=== PATIENT | male | born 1960 | race Caucasian/White ===

== ENCOUNTER → 2019-11-20 10:48 | Outpatient (BNVA) | payer OTHER, SELFPAY | PROVIDERS: Family Provider Emergency Medicine Emergency Medical Services; PCP Emergency Medicine Emergency Medical Services; Visit Provider Specialist | DX: G43.711 Chronic migraine without aura, intractable, with status migrainosus (principal) | CPT/HCPCS: 64615; J0585 ==

== ENCOUNTER → 2020-02-19 09:00 | Outpatient (BNVA) | payer OTHER, SELFPAY | PROVIDERS: Family Provider Emergency Medicine Emergency Medical Services; PCP Emergency Medicine Emergency Medical Services; Visit Provider Specialist | DX: G43.711 Chronic migraine without aura, intractable, with status migrainosus (principal) | CPT/HCPCS: 64615; 96372; J0585; J1885; J2405 ==

== ENCOUNTER → 2020-05-11 10:54 | Outpatient (BNVA) | payer OTHER, SELFPAY | PROVIDERS: Family Provider Emergency Medicine Emergency Medical Services; PCP Emergency Medicine Emergency Medical Services; Visit Provider Specialist | DX: G43.711 Chronic migraine without aura, intractable, with status migrainosus (principal) | CPT/HCPCS: 64615; J0585 ==

== ENCOUNTER → 2020-08-05 11:36 | Outpatient (BNVA) | payer OTHER, SELFPAY | PROVIDERS: Family Provider Emergency Medicine Emergency Medical Services; PCP Emergency Medicine Emergency Medical Services; Visit Provider Dermatology | DX: D48.9 Neoplasm of uncertain behavior, unspecified (principal) | CPT/HCPCS: 88304 ==

== ENCOUNTER → 2020-08-26 15:17 | Outpatient (BNVA) | payer OTHER, SELFPAY | PROVIDERS: Family Provider Emergency Medicine Emergency Medical Services; PCP Emergency Medicine Emergency Medical Services; Visit Provider Specialist | DX: G43.711 Chronic migraine without aura, intractable, with status migrainosus (principal) | CPT/HCPCS: 64615; 96372; J0585; J2405 ==

== ENCOUNTER → 2020-11-18 13:58 | Outpatient (BNVA) | payer OTHER, SELFPAY | PROVIDERS: Family Provider Emergency Medicine Emergency Medical Services; PCP Emergency Medicine Emergency Medical Services; Visit Provider Specialist | DX: G43.711 Chronic migraine without aura, intractable, with status migrainosus (principal) | CPT/HCPCS: 64615 ==

== ENCOUNTER → 2021-02-17 10:05 | Outpatient (BNVA) | payer OTHER, MEDICARE, SELFPAY | PROVIDERS: Family Provider Emergency Medicine Emergency Medical Services; PCP Emergency Medicine Emergency Medical Services; Visit Provider Specialist | DX: G43.711 Chronic migraine without aura, intractable, with status migrainosus (principal) | CPT/HCPCS: 64615; J0585 ==

== ENCOUNTER → 2021-04-14 11:43 | Outpatient (BNVA) | payer OTHER, SELFPAY | PROVIDERS: Family Provider Emergency Medicine Emergency Medical Services; PCP Emergency Medicine Emergency Medical Services; Visit Provider Specialist | DX: M17.0 Bilateral primary osteoarthritis of knee (principal) | CPT/HCPCS: 73560; 73565 ==

== ENCOUNTER → 2021-05-12 10:07 | Outpatient (BNVA) | payer OTHER, SELFPAY | PROVIDERS: Family Provider Emergency Medicine Emergency Medical Services; PCP Emergency Medicine Emergency Medical Services; Visit Provider Specialist | DX: G43.709 Chronic migraine without aura, not intractable, without status migrainosus (principal); S14.3XXA Injury of brachial plexus, initial encounter; Y93.9 Activity, unspecified | CPT/HCPCS: 64615; 99214; J0585 ==

== ENCOUNTER → 2021-05-23 10:45 | Outpatient (BNVA) | payer OTHER, SELFPAY | PROVIDERS: Family Provider Emergency Medicine Emergency Medical Services; PCP Emergency Medicine Emergency Medical Services; Referring Provider Specialist; Visit Provider Specialist | DX: G56.01 Carpal tunnel syndrome, right upper limb (principal); S14.3XXA Injury of brachial plexus, initial encounter; Y93.9 Activity, unspecified | CPT/HCPCS: 95910 ==

== ENCOUNTER → 2021-05-23 12:42 | Outpatient (BNVA) | payer MEDICARE, BC, SELFPAY | PROVIDERS: Family Provider Emergency Medicine Emergency Medical Services; PCP Emergency Medicine Emergency Medical Services; Visit Provider Dermatology | DX: B35.2 Tinea manuum (principal) | CPT/HCPCS: 87220 ==

== ENCOUNTER → 2021-08-04 11:03 | Outpatient (BNVA) | payer OTHER, SELFPAY | PROVIDERS: Family Provider Emergency Medicine Emergency Medical Services; PCP Emergency Medicine Emergency Medical Services; Visit Provider Specialist | DX: G43.711 Chronic migraine without aura, intractable, with status migrainosus (principal); S14.3XXA Injury of brachial plexus, initial encounter; Y93.9 Activity, unspecified; G56.02 Carpal tunnel syndrome, left upper limb; M50.90 Cervical disc disorder, unspecified, unspecified cervical region | CPT/HCPCS: 64615; 99214; J0585 ==

== ENCOUNTER 2021-08-19 12:45 | Outpatient (CLI) | payer OTHER, SELFPAY ==
--- NOTE | 2021-08-19 13:00 | MR_ITS ---
WS: [id number] MRI BRAIN WITHOUT CONTRAST HISTORY: G44.001 - Cluster headache syndrome, unspecified, intractable... Migraines. COMPARISON: None available. TECHNIQUE: Diffusion imaging, multiplanar T1, T2 and FLAIR imaging obtained. No evidence for acute infarct or hemorrhage. Arcos-white matter differentiation is normal. Numerous T2 and FLAIR signal hyperintensities in the subcortical white matter. Bilateral distribution and predominantly in the supratentorial white matter. There are also a few white matter lesions eusebia cent to the corpus callosum over the frontal lobes and occipital lobes. No associated hemorrhage. No prior large territory infarct. Ventricles and extra-axial spaces are normal. No inferior displacement of cerebellar tonsils. The sella turcica and pituitary gland are unremarkabl e. Dural venous sinuses and [place] of Mazariegos demonstrate no abnormality on this unenhanced studies. Paranasal sinuses: Clear. Mastoid air cells: Normal. Calvarium and scalp: Intact. MR/MR head wo con* [id number] IMPRESSION: 1. No acute infarct. 2. Numerous T2 and FLAIR signal hyperintensities abdominal and within a subcor tical supratentorial white matter and bilateral distribution. There are a few w betsy matter lesions adjacent to the corpus callosum over the frontal and occipi katie lobes. Differential for these white matter lesions includes migraines, smal l vessel ischemic disease, demyelinating disease, smoking or diabetes.
--- NOTE | 2021-08-19 13:45 | MR_ITS ---
WS: [id number] MRI CERVICAL SPINE NONCONTRAST HISTORY: M50.90 - Cervical disc disorder, unspecified, migraines. COMPARISON: None available. Technique: Multiplanar, multisequence noncontrast imaging of the cervical spine. Straightening of the normal cervical lordosis. 2 mm retrolisthesis of C3. Advanced degenerative disc disease and osteophytosis throughout the cervical spine. Mild encroachment upon the ventral thecal sa c from the C3 level through C6-7. Signal within the cervical cord is normal. Visualized posterior fossa is unremarkable. Craniocervical junction, C1 and C2 relationship, odontoid process and soft tissues are normal. C2-C3: Normal. C3-C4: Osteophytic ridging and annular disc bulging. Central disc protrusion and osteophyte encroachi ng upon the ventral thecal sac. Very slight contact on the ventral cord. Moderate RIGHT and mild LEFT foraminal stenosis due to osteophytes. C4-C5: Diffuse osteophytic ridging and annular disc bulging. Focal moderate RIGHT proximal foraminal disc osteophyte complex. Posterior displacement of the nerve roots with moderate RIGHT foraminal sten osis. C5-C6: Diffuse osteophytic ridging and annular disc bulging. Disc and osteophyte encroachment and fac et arthritis causing moderate central with moderate to severe bilateral foraminal stenosis. C6-C7: Diffuse osteophytic ridging. Mild central and foraminal narrowing. C7-T1: Small LEFT foraminal disc osteophyte complex. Paraspinal soft tissue are normal. MR/MR cervical spin wo con* [id number] IMPRESSION: 1. Central disc osteophyte complex encroaching upon the ventral thecal sac at C3-4. Moderate RIGHT and mild LEFT foraminal stenosis at the C3-4 level. 2. Moderate RIGHT proximal foraminal disc osteophyte complex at C4-5 with mode rate RIGHT foraminal stenosis. 3. Moderate central with moderate to severe bilateral foraminal stenosis at C5 -6 due to disc and osteophyte disease. 4. Mild central and foraminal narrowing at C6-7.
== END 2021-08-19 12:46 | disposition home or self-care (01) ==
LOC: RADSHAW 12:49
PROVIDERS: Family Provider Emergency Medicine Emergency Medical Services; PCP Emergency Medicine Emergency Medical Services; Visit Provider Specialist
DX: G44.001 Cluster headache syndrome, unspecified, intractable; M50.90 Cervical disc disorder, unspecified, unspecified cervical region
CPT/HCPCS: 70551; 72141

== ENCOUNTER → 2021-10-27 11:28 | Outpatient (BNVA) | payer OTHER, SELFPAY | PROVIDERS: Family Provider Emergency Medicine Emergency Medical Services; PCP Emergency Medicine Emergency Medical Services; Referring Provider Specialist; Visit Provider Specialist | DX: G43.711 Chronic migraine without aura, intractable, with status migrainosus (principal); M50.90 Cervical disc disorder, unspecified, unspecified cervical region; M48.02 Spinal stenosis, cervical region; G37.9 Demyelinating disease of central nervous system, unspecified; Z87.891 Personal history of nicotine dependence | CPT/HCPCS: 64615; 99214 ==

== ENCOUNTER → 2022-01-19 10:10 | Outpatient (BNVA) | payer OTHER, SELFPAY | PROVIDERS: Family Provider Emergency Medicine Emergency Medical Services; PCP Emergency Medicine Emergency Medical Services; Visit Provider Specialist | DX: G43.711 Chronic migraine without aura, intractable, with status migrainosus (principal); M50.90 Cervical disc disorder, unspecified, unspecified cervical region; M48.02 Spinal stenosis, cervical region; G37.9 Demyelinating disease of central nervous system, unspecified; Z87.891 Personal history of nicotine dependence | CPT/HCPCS: 64615; 99212; 99213; J0585 ==

== ENCOUNTER → 2022-02-16 14:22 | Outpatient (BNVA) | payer OTHER, SELFPAY | PROVIDERS: Family Provider Emergency Medicine Emergency Medical Services; PCP Emergency Medicine Emergency Medical Services; Referring Provider Nurse Practitioner Family; Visit Provider Orthopaedic Surgery | DX: M48.02 Spinal stenosis, cervical region (principal) | CPT/HCPCS: 72050; 99204 ==

== ENCOUNTER → 2022-04-13 10:29 | Outpatient (BNVA) | payer OTHER, SELFPAY | PROVIDERS: Family Provider Emergency Medicine Emergency Medical Services; PCP Emergency Medicine Emergency Medical Services; Visit Provider Specialist | DX: G43.711 Chronic migraine without aura, intractable, with status migrainosus (principal) | CPT/HCPCS: 64615; J0585 ==

== ENCOUNTER → 2022-05-01 10:47 | Outpatient (BNVA) | payer OTHER, SELFPAY | PROVIDERS: Family Provider Emergency Medicine Emergency Medical Services; PCP Emergency Medicine Emergency Medical Services; Referring Provider Emergency Medicine Emergency Medical Services; Visit Provider Surgery | DX: Z12.11 Encounter for screening for malignant neoplasm of colon (principal) | CPT/HCPCS: 99203 ==

== ENCOUNTER → 2022-06-28 08:19 | Outpatient (BNVA) | payer OTHER, SELFPAY | PROVIDERS: Family Provider Emergency Medicine Emergency Medical Services; PCP Emergency Medicine Emergency Medical Services; Visit Provider Podiatrist Foot & Ankle Surgery | DX: S93.491A Sprain of other ligament of right ankle, initial encounter (principal); S92.154A Nondisplaced avulsion fracture (chip fracture) of right talus, initial encounter for closed fracture; W23.0XXA Caught, crushed, jammed, or pinched between moving objects, initial encounter | CPT/HCPCS: 73610; 99204 ==

== ENCOUNTER 2022-06-28 13:17 | Outpatient (CLI) | payer OTHER, SELFPAY | END 2022-06-28 13:18 | disposition home or self-care (01) | LOC: SPT 13:17 | PROVIDERS: Family Provider Emergency Medicine Emergency Medical Services; PCP Emergency Medicine Emergency Medical Services; Visit Provider Podiatrist Foot & Ankle Surgery | DX: S92.109D Unspecified fracture of unspecified talus, subsequent encounter for fracture with routine healing (principal); X58.XXXD Exposure to other specified factors, subsequent encounter | CPT/HCPCS: 97760; 99204; L1902 ==

== ENCOUNTER → 2022-07-06 10:14 | Outpatient (BNVA) | payer OTHER, SELFPAY | PROVIDERS: Family Provider Emergency Medicine Emergency Medical Services; PCP Emergency Medicine Emergency Medical Services; Visit Provider Specialist | DX: G43.711 Chronic migraine without aura, intractable, with status migrainosus (principal) | CPT/HCPCS: 64615; J0585 ==

== ENCOUNTER 2022-07-12 08:10 | Day surgery (SDC) | payer OTHER, SELFPAY ==
[2022-07-11 12:04] VITALS: BMI 31.3
[2022-07-12 08:25] VITALS: BP 112/72; PULSE 86; RESP 18; TEMP 36.2; O2SAT 94
[2022-07-12] MEDS: sodium chloride 0.9% 1,000 ML 30 ML IV (08:42)
--- NOTE | 2022-07-12 08:52 | ANES.PREANE2 ---
Pre-Anesthetic Assessment Height/Weight: Height 1.7 m Weight 90.718 kg Temp Pulse Resp BP Pulse Ox O2 Del Method 97.1 F L 86 18 112/72 94 07/12/22 08:25 07/12/22 08:25 07/12/22 08:25 07/12/22 08:25 07/12/22 08:25 07/12/22 08:25 Operation Date: 07/12/22 09:30 Proposed Procedures p Colonoscopy 44110,Z12.11(Not Applicable) - Tee Arreola DO Familial anesthetic complications: None Was Beta Kevin taken within 24 hours: N/A Was Clonidine taken within 24 hours: Yes Last intake: Intake Last Liquid Date 07/11/22 Last Liquid Time 19:00 Last Solid Date 07/10/22 Last Solid Time 19:00 Social No alcohol and No tobacco Exam alert, oriented x 3, clear to auscultation bilaterally and regular rate & rhythm Airway Mallampati: Class II Dentition: full CV/HEM Hypertension Metabolic Hyperlipidemia Neuropsych headaches, pTSD Anesthetic Plan ASA status: 2 Anesthesia: MAC Risk of > 500 ml blood loss (7ml/kg in children): No Other Pertinent Information Recently tree fell on patient - states he has no residual pain Medications/Allergies Home Medications Medication Instructions Recorded Confirmed Last Taken Type amlodipine 10 mg tablet 10 mg PO QDAY 11/20/19 07/12/22 07/12/22 History ascorbic acid (vitamin C) 500 mg 500 mg PO DAILY 11/20/19 07/12/22 07/12/22 History capsule aspirin 81 mg tablet,delayed 81 mg PO QDAY 11/20/19 07/12/22 07/08/22 History release (Adult Aspirin Regimen) atorvastatin 20 mg tablet 20 mg PO QDAY 11/20/19 07/12/22 07/11/22 History bupropion HCl 300 mg 24 hr tablet, 300 mg PO QAM 11/20/19 07/12/22 07/11/22 History extended release clonidine HCl 0.1 mg tablet 0.1 mg PO .PRN 11/20/19 07/12/22 Unknown History doxepin 100 mg capsule 100 mg PO QDAY 11/20/19 07/12/22 07/11/22 History garlic 1,000 mg capsule 1,000 mg PO QDAY 11/20/19 07/12/22 07/12/22 History hydroxyzine pamoate 25 mg capsule 25 mg PO BID PRN unknown 11/20/19 07/12/22 Unknown History lisinopril 40 mg tablet 40 mg PO QDAY 11/20/19 07/12/22 07/11/22 History magnesium oxide 500 mg capsule 500 mg PO QDAY 11/20/19 07/12/22 07/11/22 History multivitamin 1 cap PO QAM 11/20/19 07/12/22 07/12/22 History omega-3 fatty acids 1,000 mg 1,000 mg PO BID 11/20/19 07/12/22 Unknown History capsule (Fish Oil Concentrate) onabotulinumtoxinA 100 unit 155 unit SUBCUT .Q12WKS 11/20/19 07/12/22 06/29/22 History solution for injection (Botox) prazosin 5 mg capsule (Minipress) 7 mg PO QDAY 11/20/19 07/12/22 07/11/22 History vitamin B comp and C no.3 15 mg-10 1 cap PO QDAY 11/20/19 07/12/22 07/11/22 History mg-50 mg-5 mg-300 mg capsule (B Complex Plus Vitamin C) ketoconazole 2 % topical cream 1 applic topical BID #60 grams 05/23/21 07/12/22 Unknown Rx rimegepant 75 mg disintegrating 75 mg PO ONCE PRN migraine 04/27/22 07/12/22 Unknown Rx tablet (Nurtec ODT) headache #9 tabs erenumab-aooe 140 mg/mL See Rx Instructions .Route 05/24/22 07/12/22 06/02/22 Rx subcutaneous auto-injector .COMPLEX #1 mL (Aimovig Autoinjector) trazodone 100 mg tablet 100 mg PO DAILY 06/27/22 07/12/22 07/11/22 History ASO to the right #1 ea 06/28/22 07/06/22 Unknown Rx halcinonide 0.1 % topical cream 1 applic topical BID 07/12/22 07/12/22 07/10/22 History (Halog) Allergies Allergy/AdvReac Type Severity Reaction Status Date / Time No Known Allergies Allergy Verified 07/12/22 08:25 Current Medications Generic Name Dose Route Start Last Admin Trade Name Freq PRN Reason Stop Dose Admin Sodium Chloride 1,000 mls @ 30 mls/hr 07/12/22 08:30 07/12/22 08:42 Sodium Chloride 0.9% IV 07/13/22 08:29 30 mls/hr .Q24H DAMARIS Administration PFSH Anesthesia Medical History Chronic migraine without aura, intractable, with status migrainosus PTSD (post-traumatic stress disorder) Surgical History History of cataract extraction with lens replacement History of colonoscopy Hx of inguinal hernia repair Hx of shoulder replacement S/P left rotator cuff repair Family History Other Diabetes Social History Smoking and tobacco status: never smoked Alcohol intake: never History of recent travel: No Data Anesthesia Cardiac Studies: No Data to Display
--- NOTE | 2022-07-12 09:32 | PM.HP ---
Providers/Chief Complaint Primary Care Provider: Bi Boss DO History of Present Illness Cecilio Vanegas is a 61 year old male here for colonoscopy Medications/Allergies Home Medications Medication Instructions Recorded Confirmed Last Taken Type amlodipine 10 mg tablet 10 mg PO QDAY 11/20/19 07/12/22 07/12/22 History ascorbic acid (vitamin C) 500 mg 500 mg PO DAILY 11/20/19 07/12/22 07/12/22 History capsule aspirin 81 mg tablet,delayed 81 mg PO QDAY 11/20/19 07/12/22 07/08/22 History release (Adult Aspirin Regimen) atorvastatin 20 mg tablet 20 mg PO QDAY 11/20/19 07/12/22 07/11/22 History bupropion HCl 300 mg 24 hr tablet, 300 mg PO QAM 11/20/19 07/12/22 07/11/22 History extended release clonidine HCl 0.1 mg tablet 0.1 mg PO .PRN 11/20/19 07/12/22 Unknown History doxepin 100 mg capsule 100 mg PO QDAY 11/20/19 07/12/22 07/11/22 History garlic 1,000 mg capsule 1,000 mg PO QDAY 11/20/19 07/12/22 07/12/22 History hydroxyzine pamoate 25 mg capsule 25 mg PO BID PRN unknown 11/20/19 07/12/22 Unknown History lisinopril 40 mg tablet 40 mg PO QDAY 11/20/19 07/12/22 07/11/22 History magnesium oxide 500 mg capsule 500 mg PO QDAY 11/20/19 07/12/22 07/11/22 History multivitamin 1 cap PO QAM 11/20/19 07/12/22 07/12/22 History omega-3 fatty acids 1,000 mg 1,000 mg PO BID 11/20/19 07/12/22 Unknown History capsule (Fish Oil Concentrate) onabotulinumtoxinA 100 unit 155 unit SUBCUT .Q12WKS 11/20/19 07/12/22 06/29/22 History solution for injection (Botox) prazosin 5 mg capsule (Minipress) 7 mg PO QDAY 11/20/19 07/12/22 07/11/22 History vitamin B comp and C no.3 15 mg-10 1 cap PO QDAY 0107/12/22 07/11/22 History mg-50 mg-5 mg-300 mg capsule (B Complex Plus Vitamin C) ketoconazole 2 % topical cream 1 applic topical BID #60 grams 05/23/21 07/12/22 Unknown Rx rimegepant 75 mg disintegrating 75 mg PO ONCE PRN migraine 04/27/22 07/12/22 Unknown Rx tablet (Nurtec ODT) headache #9 tabs erenumab-aooe 140 mg/mL See Rx Instructions .Route 05/24/22 07/12/22 06/02/22 Rx subcutaneous auto-injector .COMPLEX #1 mL (Aimovig Autoinjector) trazodone 100 mg tablet 100 mg PO DAILY 06/27/22 07/12/22 07/11/22 History ASO to the right #1 ea 06/28/22 07/06/22 Unknown Rx halcinonide 0.1 % topical cream 1 applic topical BID 07/12/22 07/12/22 07/10/22 History (Halog) Allergies Allergy/AdvReac Type Severity Reaction Status Date / Time No Known Allergies Allergy Verified 07/12/22 08:25 PFSH Acute PFSH: Medical History Chronic migraine without aura, intractable, with status migrainosus PTSD (post-traumatic stress disorder) Surgical History History of cataract extraction with lens replacement History of colonoscopy Hx of inguinal hernia repair Hx of shoulder replacement S/P left rotator cuff repair Family History Other Diabetes Social History Smoking and tobacco status: never smoked Alcohol intake: never History of recent travel: No Vitals/I&O/Wt Last Vital Signs Temp 97.1 F L 07/12/22 08:25 Pulse 86 07/12/22 08:25 Resp 18 07/12/22 08:25 BP 112/72 07/12/22 08:25 Pulse Ox 94 07/12/22 08:25 O2 Del Method 07/12/22 08:25 Weight last 48 hrs Weight 200 lb A&P Assessment and plan (1) Colon cancer screening: Status: Acute Plan Colonoscopy Attestations Medical Necessity Statement*: Home Coding Level of Care Code Acute [employer] for Chg Fwd Diagnoses Colon cancer screening Z12.11
[2022-07-12 10:24] VITALS: BP 123/74; PULSE 65; RESP 18; TEMP 36.1; O2SAT 93
--- NOTE | 2022-07-12 10:25 | ANE.PACU2 ---
Inpatient post-anesthesia follow up: Airway intact: Yes Vital signs: Temperature 97.0 F Pulse Rate 65 Respiratory Rate 18 Blood Pressure 123/74 Pulse Oximetry 93 Oxygen Delivery Me thod Room Air Oxygen Flow Rate Fraction of Inspir ed Oxygen Hydration adequate: Yes Nausea and vomiting: No Pain level: 1 Mental status: Baseline
[2022-07-12 10:30] VITALS: BP 138/82; PULSE 61; RESP 108; O2SAT 95
== END 2022-07-12 10:46 | disposition home or self-care (01) ==
PROVIDERS: PCP Emergency Medicine Emergency Medical Services; Visit Provider Surgery
PROC: 0DJD8ZZ Inspection of Lower Intestinal Tract, Via Natural or Artificial Opening Endoscopic (ICD-10-PCS; CPT 45378; principal; 2022-07-12 09:30)
DX: Z12.11 Encounter for screening for malignant neoplasm of colon (principal); K57.30 Diverticulosis of large intestine without perforation or abscess without bleeding; D12.2 Benign neoplasm of ascending colon; I10 Essential (primary) hypertension; E78.5 Hyperlipidemia, unspecified; Z79.82 Long term (current) use of aspirin
CPT/HCPCS: 45385; 88305; J2704; J7030

== ENCOUNTER → 2022-07-25 08:15 | Outpatient (BNVA) | payer OTHER, SELFPAY | PROVIDERS: PCP Emergency Medicine Emergency Medical Services; Visit Provider Surgery | DX: Z09 Encounter for follow-up examination after completed treatment for conditions other than malignant neoplasm (principal); D12.6 Benign neoplasm of colon, unspecified | CPT/HCPCS: 99212 ==

== ENCOUNTER → 2022-07-26 11:09 | Outpatient (BNVA) | payer OTHER, SELFPAY | PROVIDERS: PCP Emergency Medicine Emergency Medical Services; Visit Provider Podiatrist Foot & Ankle Surgery | DX: S93.491D Sprain of other ligament of right ankle, subsequent encounter (principal); S92.154D Nondisplaced avulsion fracture (chip fracture) of right talus, subsequent encounter for fracture with routine healing; W23.0XXD Caught, crushed, jammed, or pinched between moving objects, subsequent encounter | CPT/HCPCS: 99213 ==

== ENCOUNTER → 2022-08-03 10:25 | Outpatient (BNVA) | payer OTHER, SELFPAY | PROVIDERS: PCP Emergency Medicine Emergency Medical Services; Visit Provider Specialist | DX: Z71.89 Other specified counseling (principal); M17.0 Bilateral primary osteoarthritis of knee | CPT/HCPCS: 20610; J7326 ==

== ENCOUNTER → 2022-09-28 09:02 | Outpatient (BNVA) | payer OTHER, SELFPAY | PROVIDERS: PCP Emergency Medicine Emergency Medical Services; Visit Provider Specialist | DX: G43.711 Chronic migraine without aura, intractable, with status migrainosus (principal) | CPT/HCPCS: 64615; 95911; J0585 ==

== ENCOUNTER → 2022-12-21 09:18 | Outpatient (BNVA) | payer OTHER, SELFPAY | PROVIDERS: PCP Emergency Medicine Emergency Medical Services; Visit Provider Specialist | DX: G43.711 Chronic migraine without aura, intractable, with status migrainosus (principal); R11.0 Nausea | CPT/HCPCS: 64615; 96372; J0585; J2405 ==

== ENCOUNTER → 2023-02-08 09:15 | Outpatient (BNVA) | payer OTHER, SELFPAY | PROVIDERS: PCP Emergency Medicine Emergency Medical Services; Visit Provider Specialist | DX: M17.0 Bilateral primary osteoarthritis of knee (principal) | CPT/HCPCS: 20610; J7326 ==

== ENCOUNTER 2023-03-12 10:36 | Outpatient (RCR) | payer OTHER, SELFPAY | END 2023-03-21 23:59 | disposition home or self-care (01) | LOC: SPT 10:36 | PROVIDERS: PCP Emergency Medicine Emergency Medical Services; Visit Provider Emergency Medicine Emergency Medical Services | DX: H81.399 Other peripheral vertigo, unspecified ear (principal) | CPT/HCPCS: 95992; 97161 ==

== ENCOUNTER → 2023-03-15 08:30 | Outpatient (BNVA) | payer OTHER, SELFPAY | PROVIDERS: PCP Emergency Medicine Emergency Medical Services; Visit Provider Specialist | DX: G43.711 Chronic migraine without aura, intractable, with status migrainosus (principal); I95.2 Hypotension due to drugs; T44.6X5A Adverse effect of alpha-adrenoreceptor antagonists, initial encounter | CPT/HCPCS: 64615; 99214; J0585 ==

== ENCOUNTER 2023-03-26 11:13 | Emergency (ER) | payer OTHER, SELFPAY ==
[2023-03-26 11:42] VITALS: BP 132/79; PULSE 76; RESP 16; TEMP 36.6; O2SAT 94
--- NOTE | 2023-03-26 12:06 | ECG_ITS ---
[facility] Test Date: 2023-03-26 Pat Name: Cecilio Vanegas Department: Room: Gender: Male Director Of Diagnostic Imaging: : 1960 Requested By: Young Concepcion Order Number: [id number] Wilver MD: Boyd Alcazar M.D. Measurements Intervals [place] Rate: 64 P: 50 UT: 298 QRS: 2 QRSD: 142 T: 45 QT: 420 QTc: 435 Interpretive Statements SINUS RHYTHM WITH FIRST DEGREE AV BLOCK RIGHT BUNDLE BRANCH BLOCK [120+ ms QRS DURATION, UPRIGHT V1, 40+ ms S IN I/aVL/V4/V5/V6] No previous ECG available for comparison Electronically Signed On 03-26-2023 16:43:34 CDT by Boyd Alcazar M.D. [id number]
--- NOTE | 2023-03-26 12:15 | W.ED.WEAKNES ---
HPI - Weakness General: Chief complaint: Weakness Stated complaint: low hr Time Seen by Provider: 03/26/23 12:01 Source: patient Mode of arrival: ambulatory History of Present Illness: 62 yo male present to the ER with complaints of weakness fo rthe last 2 months. No specific precipitating or exacerbating symptoms nothing that seems to relieve his been seen previously at the [facility]. He is also stating he has had a few episodes of bradycardia. He is in normal range on arrival here. Denies any chest pain or abdominal pain no shortness of breath. MD Complaint: generalized weakness Onset (ago): month(s) (2) Duration: constant Migration: none Severity: mild Relieving factors: none Exacerbating factors: none Associated symptoms: Denies chest pain, chills, confusion, melena, decreased appetite, diaphoresis, dysuria, easy bruising, fever(s), headache(s), myalgias, nausea, rash, short of breath, syncope or vomiting Review of Systems Const: Denies: fever(s), chills or diaphoresis Card: Denies: chest pain or syncope GI: Denies: nausea, vomiting or melena : Denies: dysuria Neuro: Denies: headache(s) or confusion [place]/Lymph: Denies: easy bruising PFSH ED PFSH: Medical History Chronic migraine without aura, intractable, with status migrainosus PTSD (post-traumatic stress disorder) Tubular adenoma of colon Surgical History History of cataract extraction with lens replacement History of colonoscopy Hx of inguinal hernia repair Hx of shoulder replacement S/P left rotator cuff repair Family History Other Diabetes Social History Smoking and tobacco status: never smoked Alcohol intake: never Substance/Drug Use: never Physical Exam Const: GENERAL APPEARANCE: cooperative and comfortable ORIENTATION/CONSCIOUSNESS: Yes awake, Yes oriented to person, Yes oriented to place and Yes oriented to time HENMT: COMMON NORMALS: normocephalic, atraumatic and hearing grossly normal bilaterally HEAD & SCALP: normocephalic and atraumatic Resp: COMMON NORMALS: normal respiratory effort, No retractions, No use of accessory muscles and clear to auscultation bilaterally AUSCULTATION: clear to auscultation bilaterally Cardio: COMMON NORMALS: regular rate, regular rhythm and No murmurs present (Cardio) RATE: regular rate RHYTHM: regular rhythm GI: COMMON NORMALS: Soft to palpation and No hepatosplenomegaly present AUSCULTATION: Yes normoactive bowel sounds PALPATION: Yes Soft to palpation, No Tenderness to palpation present (GI), No Guarding due to palpation present (GI) and Yes No hepatosplenomegaly present Extremity: COMMON NORMALS: normal to inspection, capillary refill normal, no clubbing, cyanosis or edema, no calf tenderness and no pedal edema Neuro: SENSORIUM/ORIENTATION: Yes oriented to person, Yes oriented to place and Yes oriented to time Skin: COMMON NORMALS: no rashes or lesions noted GENERAL SKIN EXAM: no rashes or lesions noted Course Vital Signs: Vital signs: Vital Signs Temperature 97.8 F 03/26/23 11:42 Pulse Rate 66 03/26/23 13:30 Respiratory Rate 16 03/26/23 11:42 Blood Pressure 149/86 03/26/23 13:30 Pulse Oximetry 91 03/26/23 13:30 Oxygen Delivery Me thod Room Air 03/26/23 13:30 MDM - Weakness Medical Decision Making Labs and imaging reviewed cardiac enzymes and EKG do not show any acute changes. Will discharge home have patient follow-up with his primary care doctor. We will also set him up for a 48-hour Holter monitor. Return if has further problems. Medical Records I reviewed the patient's medical records. Lab Data I reviewed the patient's lab results. 03/26/23 12:35 03/26/23 12:35 Radiology Impressions Chest X-Ray 03/26/23 13:43 IMPRESSION: No acute findings. Laboratory Results WBC 4.9 10^3/uL (4.0-10.0) 03/26/23 12:35 RBC 4.61 10^6/uL (4.1-5.3) 03/26/23 12:35 Hgb 13.9 g/dL (11.7-16.6) 03/26/23 12:35 Hct 41.2 % (42.0-52.0) L 03/26/23 12:35 MCV 89.4 fl (80-94) 03/26/23 12:35 MCH 30.2 pg (28.0-34.0) 03/26/23 12:35 MCHC 33.7 g/dL (30.0-36.0) 03/26/23 12:35 RDW 11.9 % (12.1-15.1) L 03/26/23 12:35 Plt Count 170 10^3/cmm (130-400) 03/26/23 12:35 MPV 8.7 fL (7.4-10.4) 03/26/23 12:35 Neut % (Auto) 46.1 % 03/26/23 12:35 Lymph % (Auto) 43.0 % 03/26/23 12:35 Yancey % (Auto) 7.5 % 03/26/23 12:35 Eos % (Auto) 1.8 % 03/26/23 12:35 Baso % (Auto) 1.0 % 03/26/23 12:35 Neut # (Auto) 2.27 10^3/uL (1.8-7.7) 03/26/23 12:35 Lymph # (Auto) 2.1 10^3/uL (0.8-4.8) 03/26/23 12:35 [place]y # (Auto) 0.4 10^3/uL (0.2-0.9) 03/26/23 12:35 Eos # (Auto) 0.1 10^3/uL (0.0-0.8) 03/26/23 12:35 Baso # (Auto) 0.1 10^3/uL (0.0-0.1) 03/26/23 12:35 Nucleated RBC % (auto) 0 % 03/26/23 12:35 Nucleated RBCs # 0.0 /100WBC 03/26/23 12:35 Sodium 140 mmol/L (136-145) 03/26/23 12:35 Potassium 4.4 mmol/L (3.5-5.1) 03/26/23 12:35 Chloride 102 mmol/L (98-107) 03/26/23 12:35 Carbon Dioxide 28 mmol/L (22-29) 03/26/23 12:35 Anion Gap 14.4 (5-19) 03/26/23 12:35 BUN 16 mg/dL (8-23) 03/26/23 12:35 Creatinine 1.0 mg/dL (0.7-1.2) 03/26/23 12:35 GFR Calculation 76.0 mL/min (90-130) L 03/26/23 12:35 Glucose 93 mg/dL (65-115) 03/26/23 12:35 Calculated Osmolality 291 mOsm/kg (285-295) 03/26/23 12:35 Calcium 9.7 mg/dL (8.5-10.5) 03/26/23 12:35 Total Bilirubin 0.3 mg/dL (0.15-1.2) 03/26/23 12:35 AST 38 U/L (0-40) 03/26/23 12:35 ALT 60 U/L (0-41) H 03/26/23 12:35 Alkaline Phosphatase 91 U/L (40-130) 03/26/23 12:35 Troponin T Baseline 10 ng/L (0-15) 03/26/23 12:35 Troponin T 120 Minute 8.11 ng/L (0-15) 03/26/23 14:29 Delta Troponin T -1.89 ABS# (0-10) L 03/26/23 14:29 Total Protein 6.8 g/dL (6.6-8.7) 03/26/23 12:35 Albumin 4.5 g/dL (3.5-5.2) 03/26/23 12:35 Globulin 2.3 g/dL (1.3-4.6) 03/26/23 12:35 Urine Color Yellow (Yellow) 03/26/23 14:00 Urine Appearance Clear (CLEAR) 03/26/23 14:00 Urine pH 5 (5-7) 03/26/23 14:00 Ur Specific [place] 1.025 (1.005-1.030) 03/26/23 14:00 Urine Protein Neg (Negative) 03/26/23 14:00 Urine Glucose (UA) Norm (Normal) 03/26/23 14:00 Urine Ketones Negative (Negative) 03/26/23 14:00 Urine Blood Neg (Negative) 03/26/23 14:00 Urine Nitrate Negative (Negative) 03/26/23 14:00 Urine Bilirubin Neg (Negative) 03/26/23 14:00 Urine Urobilinogen Norm mg/dL (Negative) 03/26/23 14:00 Ur Leukocyte Esterase Negative (Negative) 03/26/23 14:00 Discharge Plan Discharge Patient Disposition: Home Clinical Impression: Weakness Condition: Stable Prescriptions: No Action doxepin 100 mg capsule 100 mg PO QPM amlodipine 10 mg tablet 10 mg PO QDAY ascorbic acid (vitamin C) 500 mg capsule 500 mg PO DAILY garlic 1,000 mg capsule 1,000 mg PO QDAY magnesium oxide 500 mg capsule 500 mg PO QDAY B Complex Plus Vitamin C 14-33-13-5-300 mg capsule 1 cap PO QDAY clonidine HCl 0.1 mg tablet 0.1 mg PO .PRN Botox 100 unit recon soln 155 unit SUBCUT .Q12WKS aspirin [Adult Aspirin Regimen] 81 mg tablet,delayed release (DR/EC) 81 mg PO QDAY lisinopril 40 mg tablet 40 mg PO QPM atorvastatin 20 mg tablet 20 mg PO QDAY bupropion HCl 300 mg tablet extended release 24 hr 300 mg PO QAM hydroxyzine pamoate 25 mg capsule 25 mg PO BID PRN (Reason: unknown) trazodone 100 mg tablet 100 mg PO DAILY prazosin 5 mg capsule 5 mg PO DAILY imiquimod 5 % cream in packet 1 applic topical ONCE Qty: 24 1RF Rx Instructions: Apply thin film Sunday-Sunday (off weekends) for 2 weeks Nurtec ODT 75 mg tablet,disintegrating 75 mg PO ONCE PRN (Reason: migraine headache) Qty: 9 2RF Rx Instructions: Take 1 at onset of migraine. Aimovig Autoinjector 140 mg/mL auto-injector See Rx Instructions .ROUTE .COMPLEX Qty: 1 2RF Dose Instruction: INJECT 140MG (CONTENTS OF 1 AUTOINJECTOR) UNDER THE SKIN EVERY MONTH TO PREVENT HEADACHES Rx Instructions: INJECT 140MG (CONTENTS OF 1 AUTOINJECTOR) UNDER THE SKIN EVERY MONTH TO PREVENT HEADACHES halcinonide [Halog] 0.1 % cream 1 applic topical BID Rx Instructions: for 2 wks/mo alternating with clobetasol prn Daily Multi-Vitamin Tablet 1 tab PO DAILY cetirizine 10 mg Tablet 10 mg PO DAILY venlafaxine 150 mg Capsule,Extended Release 24hr 150 mg PO DAILY levetiracetam 1,000 mg Tablet 1,000 mg PO BID Calcium 600 + D(3) 600 mg-10 mcg (400 unit) Tablet 1 tab PO DAILY Fish Oil 150-217-840 mg Capsule,Delayed Release(Dr/Ec) 1 cap PO DAILY melatonin 10 mg Tablet 10 mg PO QPM PRN (Reason: Sleep) PreserVision AREDS-2 250-90-40-1 mg Capsule 1 tab PO BID Discharge Orders: Discharge ED (Routine); Ordered 03/26/23 Ordered By: Young Banegas Referrals: Bi Boss, DO [Primary Care Provider] - Discharge Diet: Usual diet Discharge Activity: Increase activity as tolerated Patient Instructions: Opioid Safety, Pain Management Activity Restrictions/Additional Instructions: You are seen today for complaint of weakness and low heart rate your heart rate was normal while you are in the emergency room. Your blood pressure does drop slightly when you stand however this is likely due to side effect of several of your medications. Several medications also may be contributing to you feeling tired and weak at times including the clonidine doxepin hydroxyzine prazosin trazodone. Continue current medications Case management will make arrangements for follow-up with a 48-hour Holter monitor to monitor your heart rate for a period of time. Follow-up with your primary care doctor. Return if you have further problems. 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
[2023-03-26 12:44] VITALS: BP 168/93; PULSE 64; O2SAT 95
[2023-03-26 12:49] VITALS: BP 125/72; BP 127/77; BP 142/85; PULSE 62; PULSE 63; PULSE 77
[2023-03-26 12:49] LABS: Basophils # 0.1 10^3/uL (0.0-0.1); Eosinophils # 0.1 10^3/uL (0.0-0.8); Eosinophils % 1.8 %; Hematocrit 41.2 % (42.0-52.0); Hemoglobin 13.9 g/dL (11.7-16.6); Lymphocytes # 2.1 10^3/uL (0.8-4.8); Mean Corpuscular HGB Conc 33.7 g/dL (30.0-36.0); Mean Corpuscular Hemoglobin 30.2 pg (28.0-34.0); Mean Corpuscular Volume 89.4 fl (80-94); Mean Platelet Volume 8.7 fL (7.4-10.4); Monocytes # 0.4 10^3/uL (0.2-0.9); Monocytes % 7.5 %; Neutrophils # 2.27 10^3/uL (1.8-7.7); Neutrophils % 46.1 %; Nucleated Red Blood Cells % 0 %; Platelet Count 170 10^3/cmm (130-400); Red Blood Count 4.61 10^6/uL (4.1-5.3); Red Cell Distribution Width 11.9 % (12.1-15.1); White Blood Count 4.9 10^3/uL (4.0-10.0)
[2023-03-26 13:04] LABS: Troponin(5th) Baseline 10 ng/L (0-15)
[2023-03-26 13:07] LABS: Alanine Aminotransferase 60 U/L (0-41); Albumin Level 4.5 g/dL (3.5-5.2); Alkaline Phosphatase 91 U/L (40-130); Anion Gap 14.4 (5-19); Aspartate Amino Transferase 38 U/L (0-40); Blood Urea Nitrogen 16 mg/dL (8-23); Calcium 9.7 mg/dL (8.5-10.5); Carbon Dioxide 28 mmol/L (22-29); Chloride 102 mmol/L (98-107); Globulin 2.3 g/dL (1.3-4.6); Glucose 93 mg/dL (65-115); Osmolality Calculated 291 mOsm/kg (285-295); Potassium 4.4 mmol/L (3.5-5.1); Sodium 140 mmol/L (136-145); Total Bilirubin 0.3 mg/dL (0.15-1.2); Total Protein 6.8 g/dL (6.6-8.7)
[2023-03-26 13:30] VITALS: BP 149/86; PULSE 66; O2SAT 91
--- NOTE | 2023-03-26 13:43 | XRR_ITS ---
PROCEDURE INFORMATION: Exam: XR Chest Exam date and time: 03/26/2023 1:49 PM Age: 62 years old Clinical indication: Other: Chest discomfort TECHNIQUE: Imaging protocol: Radiologic exam of the chest. Views: 1 view. COMPARISON: CR XR cervical spine 4-5V [id number] 02/16/2022 3:02 PM FINDINGS: Lungs: Lungs are clear. Pleural spaces: There is no pleural effusion or pneumothorax. Heart/Mediastinum: Cardiomediastinal contours are unremarkable. Bones/joints: Left shoulder arthroplasty is partially imaged. Bones are unremarkable otherwise. XR/XR chest 1V portable [id number] IMPRESSION: No acute findings.
[2023-03-26 14:07] LABS: Add Urine Microscopic? NO; Charge for UA Resulting for Rev
[2023-03-26 14:13] LABS: Urine Appearance Clear (CLEAR); Urine Color Yellow (Yellow)
[2023-03-26 14:14] LABS: Bilirubin Urine Neg (Negative); Blood Urine Neg (Negative); Glucose Urine UA Norm (Normal); Ketones Urine Negative (Negative); Leukocyte Esterase Urine Negative (Negative); Nitrate Urine Negative (Negative); Protein Urine Neg (Negative); Specific Gravity, Urine 1.025 (1.005-1.030); Urobilinogen Urine Norm (Negative); pH Urine 5 (5-7)
--- NOTE | 2023-03-26 14:46 | ECG_ITS ---
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 Measurements Intervals [place] Rate: 60 P: 44 IN: 298 QRS: 0 QRSD: 143 T: 33 QT: 436 QTc: 437 Interpretive Statements SINUS RHYTHM WITH FIRST DEGREE AV BLOCK RIGHT BUNDLE BRANCH BLOCK [120+ ms QRS DURATION, UPRIGHT V1, 40+ ms S IN I/aVL/V4/V5/V6] Compared to ECG 03/26/2023 12:06:37 No significant changes Electronically Signed On 03-26-2023 16:45:14 CDT by Boyd Alcazar M.D. [id number]
[2023-03-26 15:01] LABS: Troponin 5 2HR 8.11 ng/L (0-15)
[2023-03-26 15:07] LABS: Troponin 5 2HR Delta -1.89 ABS# (0-10)
== END 2023-03-26 15:45 | disposition home or self-care (01) ==
PROVIDERS: Emergency Provider Family Medicine; PCP Emergency Medicine Emergency Medical Services
DX: R53.1 Weakness (principal)
CPT/HCPCS: 36415; 71045; 80053; 81003; 84484; 85025; 93005; 99285

== ENCOUNTER → 2023-03-28 15:05 | Outpatient (BNVA) | payer OTHER, MEDICARE, SELFPAY | PROVIDERS: PCP Emergency Medicine Emergency Medical Services; Visit Provider Nurse Practitioner Family | DX: L57.0 Actinic keratosis (principal); L30.8 Other specified dermatitis; L57.8 Other skin changes due to chronic exposure to nonionizing radiation; L81.4 Other melanin hyperpigmentation; D22.5 Melanocytic nevi of trunk; Z71.89 Other specified counseling; L85.3 Xerosis cutis; Z09 Encounter for follow-up examination after completed treatment for conditions other than malignant neoplasm | CPT/HCPCS: 17000; 99214 ==

== ENCOUNTER 2023-04-17 09:36 | Outpatient (CLI) | payer OTHER, SELFPAY ==
[2023-04-17 09:40] VITALS: BMI 31.3
--- NOTE | 2023-04-17 09:41 | ECG_ITS ---
[facility] Test Date: 2023-04-17 Pat Name: Cecilio Vanegas Department: Room: Gender: Male Dope Worker: Melina Mcclure : 1960 Requested By: Bi Gonzalez Order Number: [id number] Wilver MD: Boyd Alcazar M.D. Interpretive Statements NAME OF STUDY: LEXISCAN SESTAMIBI STRESS TEST INDICATION: [abnormal ekg, RBBB, ] Procedure: At the baseline, the blood pressure was 184/93 mmHg with a heart rate of 61 bpm. The electrocardiogram showed normal sinus rhythm, right bundle branch block. The Lexiscan was infused over a period of 20 seconds. A total of 0.4 mg of Lexiscan was infused. The stress phase was continued for a total of 5 minutes. Heart rate was at the end of stress phase was 77 bpm and a blood pressure of 163/82 mmHg. The EKG at the peak infusion revealed normal sinus rhythm with no significant ST-T wave changes. Sestamibi was injected 20 seconds after the Lexiscan infusion. Blood pressure at the end of recovery phase was 153/83 mmHg with a heart rate of 72 bpm. Conclusion: 1. Normal EKG response to Lexiscan infusion 2. No Lexiscan induced chest pain or cardiac arrhythmia. 3. Normal blood pressure and heart rate response. 4. Sestamibi/sestamibi perfusion scan pending; see separate report. Electronically Signed On 04-21-2023 14:38:27 CDT by Boyd Alcazar M.D. [id number]
--- NOTE | 2023-04-17 09:41 | NMCV_ITS ---
NM jj perf SPECT r/s* [id number] Cecilio Vanegas Age: 62 Gender: M : 1960 Exam Date: 04/17/2023 11:06 Ordering Phys: Bi Boss DO Technologist: AMBER Whalen Exam Location: [facility] Indications: ABNORMAL EKG STRESS TEST Please see separate stress test report in [facility] for full findings IMAGE PROTOCOL Rest/Stress 1 Lexiscan Day Radiopharmaceutical Dose (mCi) Administration Site Administered by Rest: Tc-99m 11.0 IV AMBER Mane Sestamibi Stress:Tc-99m 32.9 IV AMBER Mane Sestamibi Rest: 17-Apr-2023 60 Discovery 630 Stress: 17-Apr-2023 30 Discovery 630 0.4mg Lexiscan. Images obtained in supine and prone position. SPECT RESULTS Technical Quality: Excellent Raw Data Analysis: Normal Image Corrections: No attenuation or motion correction applied Summed Stress Score: 0 Summed Rest Score: 1 Summed Difference Score: 0 PERFUSION FINDINGS SPECT images demonstrate homogeneous tracer distribution throughout the myocardium. FUNCTIONAL RESULTS (calculated via Gated SPECT) Stress Image LV EF (%): 56 Stress EDV (mL):119 TID: 1.03 Stress ESV (mL):52 FUNCTIONAL FINDINGS: There is normal left ventricular systolic function. IMPRESSIONS 1. Normal myocardial perfusion imaging with no evidence of ischemia 2. LV systolic function is normal Boyd Alcazar MD (Electronically Signed) Final Date: 17 April 2023 17:25 S
[2023-04-17] MEDS: regadenoson 0.4 Mg/5 ml Syringe IVP (11:42)
[2023-04-17 11:56] VITALS: BP 153/84; PULSE 67
== END 2023-04-17 09:37 | disposition home or self-care (01) ==
LOC: CDL 09:37
PROVIDERS: PCP Emergency Medicine Emergency Medical Services; Visit Provider Emergency Medicine Emergency Medical Services
DX: R94.31 Abnormal electrocardiogram [ECG] [EKG] (principal); I45.10 Unspecified right bundle-branch block
CPT/HCPCS: 36415; 78452; 93017; 96374; A9500; J2785

== ENCOUNTER → 2023-04-23 14:19 | Outpatient (BNVA) | payer OTHER, SELFPAY | PROVIDERS: PCP Emergency Medicine Emergency Medical Services; Visit Provider Internal Medicine | DX: R07.9 Chest pain, unspecified (principal); I44.0 Atrioventricular block, first degree; I45.10 Unspecified right bundle-branch block; R42 Dizziness and giddiness; R06.09 Other forms of dyspnea | CPT/HCPCS: 93005; 99204 ==

== ENCOUNTER 2023-05-09 12:27 | Outpatient (CLI) | payer OTHER, SELFPAY ==
--- NOTE | 2023-05-09 12:45 | USCV_ITS ---
Cecilio Vanegas Age: 62 Gender: M : 1960 Exam Date: 05/09/2023 13:10 Ordering Phys: Boyd Alcazar M.D ([email or web address]) Technologist: Exam [place]: [facility] [place] Indication: murmur BP: 170 / 80 HR: 67 Rhythm: Sinus Technical Quality: Adequate MEASUREMENTS (Male / Female) Normal Values 2D ECHO LV Diastolic Diameter PLAX 3.8 cm 4.2 - 5.9 / 3.9 - 5.3 cm LV Systolic Diameter PLAX 2.5 cm IVS Diastolic Thickness 1.1 cm 0.6 - 1.0 / 0.6 - 0.9 cm IVS Systolic Thickness 1.4 cm LVPW Diastolic Thickness 1.0 cm 0.6 - 1.0 / 0.6 - 0.9 cm LVPW Systolic Thickness 1.5 cm LVOT Diameter 2.1 cm LV Ejection Fraction 2D Teich 61.5 % LV Ejection Fraction MOD 2C 68.3 % LV Ejection Fraction 2C AL 67.6 % LA Diameter 3.9 cm Aorta at Sinotubular Diameter 4.0 cm IVC Diameter 1.8 cm M-MODE Aortic Annulus Diameter 4.2 cm LA Ao Ratio MM 1.0 MV E Point Septal Separation 1.2 cm DOPPLER AV Peak Velocity 113.0 cm/s LVOT Peak Velocity 84.0 cm/s AV Area Cont Eq vti 2.7 cm squared AV Area Cont Eq pk 2.6 cm squared MV Area PHT 4.1 cm squared Mitral E to A Ratio 1.0 MV E' Velocity 38.0 cm/s Mitral E to MV E' Ratio 7.6 Mitral E to LV E' Lateral Ratio 6.9 Mitral E to LV E' Septal Ratio 8.5 TR Peak Velocity 161.0 cm/s TR Peak Gradient 10.4 mmHg TV Peak E Velocity 111.0 cm/s Right Atrial Pressure 3.0 mmHg Pulmonary Artery Systolic Pressu 13.4 mmHg RV Acceleration Time 0.2 s FINDINGS Left Ventricle Left ventricle is normal size. LV systolic function is normal with EF of 60 to 65%. No regional wall motion abnormalities are seen. Right Ventricle Normal in size and function Right Atrium Normal size Left Atrium Normal in size Mitral Valve Structurally normal mitral valve. Mild mitral regurgitation. Aortic Valve Aortic valve is thickened. Mild aortic regurgitation. Tricuspid Valve Mild tricuspid regurgitation. Insufficient TR jet to calculate RVSP. Pulmonic Valve Not well-visualized Pericardium Normal Aorta Ascending aorta is dilated with diameter of 4 cm IVC Appears to be normal CONCLUSIONS LV systolic function is normal with EF of 60 to 65%. Mild mitral regurgitation Mild aortic regurgitation Mild tricuspid regurgitation Ascending aorta is dilated with diameter of 4 cm. No comparison studies are available Boyd Alcazar MD (Electronically Signed) Final Date: 26 May 2023 11:26 S
== END 2023-05-09 12:28 | disposition home or self-care (01) ==
PROVIDERS: PCP Emergency Medicine Emergency Medical Services; Visit Provider Internal Medicine
DX: R00.2 Palpitations (principal); R07.9 Chest pain, unspecified
CPT/HCPCS: 93306

== ENCOUNTER 2023-05-22 11:09 | Outpatient (CLI) | payer OTHER, SELFPAY ==
--- NOTE | 2023-05-22 11:15 | US_ITS ---
WS: [id number] RENAL ULTRASOUND HISTORY: FOLLOW UP ON CYST-L KIDNEY ON CT COMPARISON: None available. TECHNIQUE: 2-D and color Doppler imaging of the kidney submitted. Right kidney: 10.9 cm x 5.3 cm x 4.6 cm. Cortex: 1.7 cm Normal size kidney. There is a cortical cyst mid kidney measuring 1.3 x 1.0 x 1.0 cm. No solid mass. Left kidney: 10.5 cm x 5.1 cm x 6.0 cm. Cortex: 1.1 cm Normal size kidney. Simple cyst mid kidney measures 3.2 x 3.0 x 2.9 cm. No solid mass. Aorta: Normal. Urinary Bladder: Normal distention. Prostate gland is slightly enlarged and heterogeneous. Prostate measures 3.4 x 4.4 x 4.1 cm. Mild enc roachment into the base of the urinary bladder. US/US renal BI* 32010 IMPRESSION: 1. Bilateral renal cysts as described above. The largest mid LEFT kidney measu res 3.2 x 3.0 x 2.9 cm. No prior studies for comparison to evaluate for interva l change. 2. Mild prostate enlargement.
== END 2023-05-22 11:10 | disposition home or self-care (01) ==
PROVIDERS: PCP Emergency Medicine Emergency Medical Services; Visit Provider Emergency Medicine Emergency Medical Services
DX: N28.1 Cyst of kidney, acquired (principal); N40.0 Benign prostatic hyperplasia without lower urinary tract symptoms
CPT/HCPCS: 76770

== ENCOUNTER → 2023-06-14 08:13 | Outpatient (BNVA) | payer OTHER, SELFPAY | PROVIDERS: PCP Emergency Medicine Emergency Medical Services; Visit Provider Specialist | DX: G43.711 Chronic migraine without aura, intractable, with status migrainosus (principal); G37.9 Demyelinating disease of central nervous system, unspecified | CPT/HCPCS: 64615; 99213; J0585 ==

== ENCOUNTER → 2023-07-11 14:17 | Outpatient (BNVA) | payer OTHER, SELFPAY | PROVIDERS: PCP Emergency Medicine Emergency Medical Services; Visit Provider Internal Medicine | DX: R42 Dizziness and giddiness (principal); R06.09 Other forms of dyspnea | CPT/HCPCS: 99214 ==

== ENCOUNTER → 2023-08-16 09:50 | Outpatient (BNVA) | payer OTHER, SELFPAY | PROVIDERS: PCP Emergency Medicine Emergency Medical Services; Visit Provider Specialist | DX: M17.0 Bilateral primary osteoarthritis of knee (principal); Z71.89 Other specified counseling | CPT/HCPCS: 20610; J7326 ==

== ENCOUNTER → 2023-09-20 08:59 | Outpatient (BNVA) | payer OTHER, SELFPAY | PROVIDERS: PCP Emergency Medicine Emergency Medical Services; Visit Provider Specialist | DX: G43.711 Chronic migraine without aura, intractable, with status migrainosus (principal) | CPT/HCPCS: 64615; 95911; J0585 ==

== ENCOUNTER → 2023-10-05 10:38 | Outpatient (BNVA) | payer OTHER, SELFPAY | PROVIDERS: PCP Emergency Medicine Emergency Medical Services; Visit Provider Nurse Practitioner Family | DX: L30.8 Other specified dermatitis (principal); L57.8 Other skin changes due to chronic exposure to nonionizing radiation; D22.5 Melanocytic nevi of trunk; L81.4 Other melanin hyperpigmentation; L85.3 Xerosis cutis | CPT/HCPCS: 99214 ==

== ENCOUNTER → 2023-11-19 10:16 | Outpatient (BNVA) | payer OTHER, SELFPAY | PROVIDERS: PCP Emergency Medicine Emergency Medical Services; Visit Provider Specialist | DX: Z01.818 Encounter for other preprocedural examination; M17.12 Unilateral primary osteoarthritis, left knee | CPT/HCPCS: 73560; 73565; 99214 ==

== ENCOUNTER → 2023-11-22 10:25 | Outpatient (BNVA) | payer OTHER, SELFPAY | PROVIDERS: PCP Emergency Medicine Emergency Medical Services; Visit Provider Nurse Practitioner | DX: M17.11 Unilateral primary osteoarthritis, right knee (principal); Z71.89 Other specified counseling | CPT/HCPCS: 20610; J1100; J2795; J3301 ==

== ENCOUNTER → 2023-12-20 08:40 | Outpatient (BNVA) | payer OTHER, SELFPAY | PROVIDERS: PCP Emergency Medicine Emergency Medical Services; Visit Provider Specialist | DX: G43.711 Chronic migraine without aura, intractable, with status migrainosus (principal) | CPT/HCPCS: 64615; J0585 ==

== ENCOUNTER → 2023-12-24 15:29 | Outpatient (BNVA) | payer SELFPAY | PROVIDERS: PCP Emergency Medicine Emergency Medical Services; Visit Provider Family Medicine | DX: Z01.818 Encounter for other preprocedural examination (principal) | CPT/HCPCS: 80053; 81003; 85025 ==

== ENCOUNTER 2023-12-25 09:25 | Outpatient (CLI) | payer OTHER, SELFPAY ==
--- NOTE | 2023-12-25 10:30 | CT_ITS ---
WS: [id number] CT LEFT KNEE, NONCONTRAST MAHAMED TECHNIQUE: Noncontrast CT of the LEFT knee to include the LEFT hip and ankle. CLINICAL INFORMATION: LEFT TOTAL KNEE ARTHROPLASTY COMPARISON: None. DLP: [address] scans at [facility] use at least one of these dose optimization techniques: automated e xposure control; mA and/or kV adjustment per patient size (includes targeted exams where dose is matc hed to clinical indication); or iterative reconstruction. FINDINGS: Advanced Tricompartment arthritis LEFT knee worse in the medial joint compartment. Jgdw-bg-zhet artic ulation with subchondral sclerosis. Hypertrophic changes along the joint line. Hypertrophic patella. Advanced narrowing of the patellofemoral articulation. Small subpatellar effusion. Vascular calcifica tion. Fat-containing LEFT inguinal hernia. Enlarged prostate measuring 3.9 x 4.2 cm. Sigmoid constipa tion. Moderate degenerative narrowing both hips. IMPRESSION: Images obtained for preoperative purposes.
== END 2023-12-25 09:26 | disposition home or self-care (01) ==
LOC: RAD 09:27
PROVIDERS: PCP Emergency Medicine Emergency Medical Services; Visit Provider Specialist
DX: Z01.818 Encounter for other preprocedural examination (principal); M17.12 Unilateral primary osteoarthritis, left knee
CPT/HCPCS: 73700; 87086

== ENCOUNTER 2024-01-08 11:24 | Observation (INO) | payer OTHER, SELFPAY ==
[2024-01-08] VITALS (30 sets, daily range): BP systolic 113–171; BP diastolic 66–107; PULSE 64–87; RESP 12–20; TEMP 36.4–37.4; O2SAT 92–99; BMI 32.1
--- NOTE | 2024-01-08 07:09 | W.PM.OPSUD ---
Surgery/Procedure H&P Update DATE OF PROCEDURE: January 08, 2024 DATE H&P PERFORMED: 05/01/22 H&P UPDATE INFORMATION: I have reviewed H&P completed within last 30 days, I have examined patient prior to procedure, No changes to prior documentation and H&[place] in [facility] [place] date indicated PLANNED PROCEDURE: Operation Date: 01/08/24 08:15 Proposed Procedures p Tello Robot Total Knee Arthroplasty(left)(Left) - Kiki Lua MD Related Problem List Diagnoses (1) Primary osteoarthritis of left knee:
[2024-01-08] MEDS: sodium chloride 0.9% 1,000 ML 30 ML IV (07:14)
[2024-01-08] MEDS: acetaminophen 1,000 MG/100 ML PIGGYBACK 400 MG IV ×3 (07:14→22:48)
[2024-01-08] MEDS: gabapentin 300 mg Capsule PO (07:15)
[2024-01-08] MEDS: CELEcoxib 200 mg Capsule 400 MG PO (07:15)
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
--- NOTE | 2024-01-08 08:12 | ANES.PROC ---
Anesthesia Procedures Procedure/Date: 01/08/24 Nerve Block ^: Nerve Block 1: Main Anesthesia: spinal anesthesia block Time Out Performed: Yes Consent: requested by attending/covering physician, from patient, from other, risks and benefits reviewed and patient agrees to proceed Nerve block location: adductor canal (L) Anesthesia monitors applied: pulse oximetry, EKG and BP cuff Nerve block position: supine Anesthetic Used: ropivicaine 0.5% (30 ml) and with decadron (4 mg) Ultrasound used to: recognize landmarks and visualize and ID femerol nerve Nerve Stimulator Used?: No Interscalene/Femoral BLK: 4 stimuplex 21 g needle used for position and inplane approach, visualize local anesthetic spread and no vascular puncture identified Patient Tolerated Procedure: well Complications: none
--- NOTE | 2024-01-08 08:24 | SUR.PREOP ---
made and pre-op nurse aware of patients PTSD from the . She wanted all staff aware for their saftey. Pacu nurses were made aware before patient went to surgery.
[2024-01-08] MEDS: ceFAZolin 2,000 MG in sodium chloride 0.9% (plus) 50 ML 100 MG IV ×3 (08:27→23:12)
[2024-01-08] MEDS: tranexamic acid 1,000 mg/10mL SDV 1000 MG IV (09:11)
[2024-01-08] MEDS: BUPivacaine 0.5% INJ 30 mL 20 ML INJECTION (09:44)
[2024-01-08] MEDS: BUPivacaine liposome 13.3 mg/mL SDV 10 mL 266 MG INFILTRATI (09:44)
[2024-01-08] MEDS: ceFAZolin 1,000 mg SDV 2000 MG IRRIGATION (09:45)
[2024-01-08] MEDS: vancomycin 1,000 MG SDV 1000 MG XX (09:46)
--- NOTE | 2024-01-08 12:20 | XR_ITS ---
WS: [id number] Left knee, AP and lateral views, 01/08/2024 Clinical Data: S/P LT TKA -- PACU IMAGES Comparison: Bilateral knees, 11/19/2023 Findings: The left knee arthroplasty components are in good position. There is postoperative air within the martha nt space. Impression: Left knee arthroplasty
--- NOTE | 2024-01-08 12:27 | PM.OP ---
Operative Report Date of procedure: January 08, 2024 Pre-op diagnosis: Left knee primary osteoarthritis with slight flexion contracture and varus deformity Post-op diagnosis: Left knee primary osteoarthritis with slight flexion contracture and varus deformity Post-op findings: Significant degenerative osteoarthritis of the left knee with flexion contracture and varus deformity Procedure done: Left total knee arthroplasty with Tello guidance Implants: The Rosanne total knee system with a size 4 triathlon beaded cruciate retaining femur left, a triathlon titanium tibial component size 5 beaded, a triathlon X3 tibial bearing CS insert size 5 X 12 mm and a beaded triathlon titanium asymmetric patella size 35 x 10 mm Specimens removed/disposition: Bone, disposed of Pathology: None Surgeon: Kiki Lua MD Home Paraprofessional: Tayler Phillip, nurse practitioner, who services were essential for positioning, retraction, closure, and completion of the surgical procedure Estimated blood loss (mL): 150 Tourniquet time (min): 0 (Not utilized) IV fluids (mL): 1,000 Urine output (mL): 350 Complications: None Findings: Severe degenerative osteoarthritic change with large osteophytes and flexion and varus Condition: stable Disposition: PACU (Then to floor under observation status for postoperative rehabilitation and pain management) Brief History: This 63-year-old gentleman presented today for same-day surgery for left total knee arthroplasty. The patient has significant degenerative osteoarthritic change with varus deformity and slight flexion contracture. The patient has significant limitations in his activities of daily living. After discussion, he wished to proceed with left total knee arthroplasty. Risks and complications were discussed with him. Consents were signed and questions were answered. Procedure: The patient was brought to the operating theater, and after undergoing spinal anesthetic, with supplemental adductor canal block, ASA 2, the left lower extremity was prepped with Dura-Prep and draped in usual fashion following placement of a tourniquet high on the leg. The leg was then draped free.? Tourniquet was not elevated during the case.? A surgical pause was performed, and at the time of the surgical pause, we confirmed the site and side of surgery. Additionally, we confirmed the appropriate and timely administration of preoperative antibiotics, Ancef 2 g.? The availability of equipment was confirmed, and the patient's identity was verbalized as well. Following the surgical pause, an incision was made centering over the patella continuing proximally and distally as necessary to allow access to the knee joint. Dissection continued through skin and soft tissues using a scalpel. Hemostasis was obtained using electrocautery. The skin incision was followed by a median parapatellar arthrotomy. The leg was extended and the patella was able to be displaced laterally.? Appropriate arrays and markers were placed in appropriate position for use of the Tello.? Preoperative planning had been accomplished and was discussed in detail with the [facility] retail field representative.? Intraoperative mapping of the femur and tibia was accomplished after the arrays were placed.? Internal markers were also placed.? Once we had accomplished the Tello mapping, we began the appropriate resections for placement of the prosthesis.? The plan was for a cruciate retaining right total knee arthroplasty. Once appropriate mapping had been accomplished retraction was established using manual retraction by surgical technicians and also the [facility] leg positioner and retractors.? The knee was evaluated.? There was significant osteoarthritic change as well as very minimal flexion contracture as well as slight varus deformity.? Appropriate bone resection was accomplished using the Tello.? The femur was sized to a size 4.? Following femoral cuts, attention was directed to the tibia.? Osteophytes were removed prior to this portion of the procedure.? We had performed a minimal medial release at the beginning of the procedure to allow for placement of the array.? Proximal tibia was evaluated, and it was felt that appropriate size for the tibia was a size 5.? Tray was noted to fit nicely with good coverage.? Rim fit was accomplished with the size 5. A trial reduction was accomplished after osteophytes have been removed as well as the medial and lateral menisci.? We had removed the anterior cruciate ligament at the beginning of the case and preserved the posterior cruciate ligament.? Trial reduction was accomplished with a size 4 femoral cruciate retaining component, a size 5 tibial tray and a size 5 CS tibial bearing insert which was 9 mm initially which was increased to 11 mm.? Secondary to the balancing of the knee, we elected to place a 12 mm insert for the actual component. Alignment was felt to be appropriate as well.? Trial components were removed after the femur had been drilled.? Prior to removal of the tibial tray which had been pinned in position with appropriate rotation as determined by the Tello plan, we broached the tibia.? Subsequently, the 4 drill holes were made for the prosthetic component.? All trial components were removed, and the wound was irrigated.? Plans were made for insertion of the prosthetic components.? Prior to this, the patella was manually prepared.? After resection of the articular surface with the jigging system, it was measured and measured a 35 mm patella.? We resected approximately 10 mm of patella.? Patellar height was restored with the patellar component. Once again, the wound was irrigated.? The Tritanium tibia was impacted into position.? The beaded femur was then impacted into position in a cementless fashion. The CS tibial insert was placed prior to placement of the femoral component. The patella was pressed into position with a patellar clamp.? Exparel was injected about the components deep and superficially.? The knee was then copiously irrigated with betadine and saline and suctioned dry. Attention was then directed to closure. Closure was accomplished with 0 Vicryl in the fascial tissues.? The suture line of 0 Vicryl was supplemented with strata fix, #1, with a running stitch from proximal to distal and a second running stitch from distal to proximal.? This was followed by Surgiflo and vancomycin powder.? Following this, a 2-0 Monocryl was used in the subcutaneous tissues, and the skin was closed with 3-0 Strata fix.? Care was taken to assure an excellent subcutaneous as well as skin closure.? A sterile dressing was then placed consisting of Dermabond Prineo, OpSite, ABD, sterile soft roll, and an Dawit wrap including over the foot. The patient was returned the Recovery Room in a satisfactory condition. X-rays were obtained and reviewed there.? The patient will be discharged to the floor for postoperative rehabilitation and pain management. Related Problem List Diagnoses (1) Primary osteoarthritis of left knee:
--- NOTE | 2024-01-08 13:04 | PC.NURSE ---
1304 - pt moved to room 12 due to increase in PTSD symptoms - Dr Lua at pts side as well as - Dimitry, NAHEED into room to check pt - no new orders given - pt is not showing aggression only confusion - stating he is at an [place] check point
--- NOTE | 2024-01-08 13:40 | ANE.PACU2 ---
Inpatient post-anesthesia follow up: Airway intact: Yes Vital signs: Temperature 98.9 F Pulse Rate 68 Respiratory Rate 17 Blood Pressure 164/83 Pulse Oximetry 94 Oxygen Delivery Me thod Room Air Oxygen Flow Rate 8 Fraction of Inspir ed Oxygen Hydration adequate: Yes Nausea and vomiting: No Pain level: 1 Mental status: Baseline
--- NOTE | 2024-01-08 13:47 | PC.NURSE ---
1340 - pt awake and alert at present time - states he is in [place] - has remained at side almost entire time in PACU - no agression noted - Dr Lua and NAHEED Moraes at side and aware of transfer to floor - detailed report given to Dorita Garcia RN as well as documented code words to use during PTSD
[2024-01-08] MEDS: oxyCODONE 5 mg IR Tab/Cap PO ×3 (14:44→22:47)
[2024-01-08] MEDS: tranexamic acid 1,000 MG/100 ML PREMIX 600 MG IV (14:44)
[2024-01-08] MEDS: chlorhexidine gluconate 0.12% Btl 473 mL 30 ML MUCOUS MEM ×2 (17:15→20:34)
[2024-01-08] MEDS: iron polysaccharide complex 150 mg Capsule PO (17:15)
[2024-01-08] MEDS: doxepin 50 mg Capsule 100 MG PO (17:15)
[2024-01-08] MEDS: sennosides-docusate Tablet 2 TAB PO (17:15)
[2024-01-08] MEDS: levETIRAcetam 500 mg Tablet 1000 MG PO (17:15)
[2024-01-08] MEDS: lisinopril 20 mg Tablet 40 MG PO (17:15)
[2024-01-08] MEDS: trazodone 100 mg Tablet PO (21:53)
[2024-01-09] VITALS (8 sets, daily range): BP systolic 100–158; BP diastolic 61–93; PULSE 80–92; RESP 16–18; TEMP 36.6–36.9; O2SAT 90–92
[2024-01-09] MEDS: oxyCODONE 5 mg IR Tab/Cap PO ×3 (02:55→12:19)
[2024-01-09 05:17] LABS: Basophils % 0.1 %; Hematocrit 34.1 % (37-53); Lymphocytes # 1.8 10^3/uL (0.8-4.8); Lymphocytes % 22.8 %; Mean Corpuscular HGB Conc 33.4 g/dL (30-55); Mean Corpuscular Volume 89.7 fl (82-101); Mean Platelet Volume 9.2 fL (7.4-10.4); Monocytes # 0.7 10^3/uL (0.2-0.9); Monocytes % 9.3 %; Neutrophils # 5.16 10^3/uL (1.8-7.7); Neutrophils % 67.4 %; Nucleated Red Blood Cells % 0 %; Platelet Count 154 10^3/cmm (157-399); Red Cell Distribution Width 12.4 % (12.1-15.1); White Blood Count 7.66 10^3/uL (3.29-11.43)
[2024-01-09 05:38] LABS: Anion Gap 10.9 (5-19); Blood Urea Nitrogen 21 mg/dL (8-23); Calcium 8.5 mg/dL (8.5-10.5); Carbon Dioxide 28 mmol/L (22-29); Chloride 105 mmol/L (98-107); Creatinine Clr Calc Pharmacy 78.1024; Glomerular Filtration Rate 67.8 mL/min (90-130); Glucose 113 mg/dL (65-115); Osmolality Calculated 294 mOsm/kg (285-295); Potassium 3.9 mmol/L (3.5-5.1); Sodium 140 mmol/L (136-145)
[2024-01-09] MEDS: acetaminophen 1,000 MG/100 ML PIGGYBACK 400 MG IV (06:07)
[2024-01-09] MEDS: buPROPion XL (24 HR) 300 mg Tablet PO (06:07)
[2024-01-09] MEDS: iron polysaccharide complex 150 mg Capsule PO (07:46)
[2024-01-09] MEDS: ceFAZolin 2,000 MG in sodium chloride 0.9% (plus) 50 ML 100 MG IV (07:46)
[2024-01-09] MEDS: cetirizine 10 mg Tablet PO (07:47)
[2024-01-09] MEDS: atorvastatin 40 mg Tablet 20 MG PO (07:47)
[2024-01-09] MEDS: aspirin 325 mg EC Tablet PO (07:47)
[2024-01-09] MEDS: prazosin 5 mg Capsule PO (07:47)
[2024-01-09] MEDS: levETIRAcetam 500 mg Tablet 1000 MG PO (07:47)
[2024-01-09] MEDS: sennosides-docusate Tablet 2 TAB PO (07:48)
[2024-01-09] MEDS: amlodipine 10 mg Tablet PO (07:48)
[2024-01-09] MEDS: venlafaxine ER (24HR) 150 mg Capsule PO (07:48)
[2024-01-09] MEDS: chlorhexidine gluconate 0.12% Btl 473 mL 30 ML MUCOUS MEM (07:54)
--- NOTE | 2024-01-09 13:31 | P.DS_ITS ---
Discharge Providers Date of Admission: 01/08/24 11:24 Date of Discharge: January 09, 2024 Attending Provider at Admission: Kiki Lua MD Attending Provider at Discharge: Kiki Lua MD Primary Care Provider: Bi Boss DO Diagnoses at Discharge Discharge Diagnosis (1) Status post total left knee replacement not using cement: Details from hospital stay: Date of procedure: January 08, 2024 Diagnosis: Left knee primary osteoarthritis with slight flexion contracture and varus deformity Procedure done: Left total knee arthroplasty with Tello guidance Implants: [employer] total knee system with a size 4 triathlon beaded cruciate retaining femur left, a triathlon titanium tibial component size 5 beaded, a triathlon X3 tibial bearing CS insert size 5 X 12 mm and a beaded triathlon titanium asymmetric patella size 35 x 10 mm Status: Acute (2) Primary osteoarthritis of left knee: Status: Acute Reason for Visit Reason for Visit: M17.12 Brief History: This 63-year-old gentleman presented today for same-day surgery for left total knee arthroplasty. The patient has significant degenerative osteoarthritic change with varus deformity and slight flexion contracture. The patient has significant limitations in his activities of daily living. After discussion, he wished to proceed with left total knee arthroplasty. Risks and complications w ere discussed with him. Consents were signed and questions were answered. Hospital Course Hospital Course This 63-year-old gentleman was admitted under observation status following left total knee arthroplasty without using cement. The patient tolerated the procedure nicely. Postoperatively, he had physical therapy and worked with the therapist on gait training, ambulation, and strengthening. Plans are that he would be discharged home with home health. On the first postoperative day, the dressing was removed. The leg was benign. There is little to no bleeding. Patient and his are comfortable with being discharged home. Therefore they were discharged and will follow-up in the office as scheduled. Physical Exam Const: COMMON NORMALS: no acute distress, average body habitus, patient oriented x3 and alert GENERAL APPEARANCE: cooperative and comfortable ORIENTATION/CONSCIOUSNESS: Yes awake HENMT: COMMON NORMALS: normocephalic and atraumatic HEAD & SCALP: normocephalic and atraumatic Eye: GENERAL EYE: appearance normal, both eyes and all related structures Chest: COMMONS NORMALS: normal inspection of the chest Resp: COMMON NORMALS: normal respiratory effort EFFORT & INSPECTION: Yes able to speak in complete sentences and Yes symmetric chest movement Extremity: LEFT LOWER EXTREMITY: Yes knee joint (Dressing dry and intact) Left knee: Yes inspection (No significant swelling), Yes ROM (Able to straight leg raise) and Yes neurovascular exam (Intact distally with no evidence of DVT) Neuro: COMMON NORMALS: patient oriented x3 SENSORIUM/ORIENTATION: Yes alert Psych: COMMON NORMALS: mental status grossly normal APPEARANCE: Yes grossly normal ATTITUDE: Yes calm and Yes engaged ATTENTION/CONCENTRATION: Yes attention grossly intact Skin: COMMON NORMALS: no rashes or lesions noted GENERAL SKIN EXAM: no rashes or lesions noted Urinary Catheter Management: Arriaga: Cath Placed During This Visit: yes, but has since been removed by the nurse Reason for Continuing Indwelling Catheter: Decision to DC Catheter Urinary Catheter Date of Insertion: 01/08/24 Urinary Catheter Time of Insertion: 09:00 Date Urinary Catheter Removed: 01/09/24 Time Urinary Catheter Discontinued: 06:13 Discharge Data Studies Completed and Pending Completed Studies During Hospitalization Category Date Time Status XR knee LT 3V* [id number] Stat Exams 01/08/24 12:20 Completed Pending at discharge Category Date Time Status Complete Blood Count w/Auto AM LABS Lab 01/10/24 04:00 Ordered Complete Blood Count w/Auto AM LABS Lab 01/11/24 04:00 Ordered Laboratory Results WBC 7.66 10^3/uL (3.29-11.43) 01/09/24 04:48 RBC 3.80 10^6/uL (3.85-5.65) L 01/09/24 04:48 Hgb 11.40 g/dL (11.27-16.99) 01/09/24 04:48 Hct 34.1 % (37-53) L 01/09/24 04:48 MCV 89.7 fl (82-101) 01/09/24 04:48 MCH 30.0 pg (27-33) 01/09/24 04:48 MCHC 33.4 g/dL (30-55) 01/09/24 04:48 RDW 12.4 % (12.1-15.1) 01/09/24 04:48 Plt Count 154 10^3/cmm (157-399) L 01/09/24 04:48 MPV 9.2 fL (7.4-10.4) 01/09/24 04:48 Neut % (Auto) 67.4 % 01/09/24 04:48 Lymph % (Auto) 22.8 % 01/09/24 04:48 [place] % (Auto) 9.3 % 01/09/24 04:48 Eos % (Auto) 0.0 % 01/09/24 04:48 Baso % (Auto) 0.1 % 01/09/24 04:48 Neut # (Auto) 5.16 10^3/uL (1.8-7.7) 01/09/24 04:48 Lymph # (Auto) 1.8 10^3/uL (0.8-4.8) 01/09/24 04:48 [place] # (Auto) 0.7 10^3/uL (0.2-0.9) 01/09/24 04:48 Eos # (Auto) 0.0 10^3/uL (0.0-0.8) 01/09/24 04:48 Baso # (Auto) 0.0 10^3/uL (0.0-0.1) 01/09/24 04:48 Nucleated RBC % (auto) 0 % 01/09/24 04:48 Nucleated RBCs # 0.0 /100WBC 01/09/24 04:48 Sodium 140 mmol/L (136-145) 01/09/24 04:48 Potassium 3.9 mmol/L (3.5-5.1) 01/09/24 04:48 Chloride 105 mmol/L (98-107) 01/09/24 04:48 Carbon Dioxide 28 mmol/L (22-29) 01/09/24 04:48 Anion Gap 10.9 (5-19) 01/09/24 04:48 BUN 21 mg/dL (8-23) 01/09/24 04:48 Creatinine 1.1 mg/dL (0.7-1.2) 01/09/24 04:48 GFR Calculation 67.8 mL/min (90-130) L 01/09/24 04:48 Glucose 113 mg/dL (65-115) 01/09/24 04:48 Calculated Osmolality 294 mOsm/kg (285-295) 01/09/24 04:48 Calcium 8.5 mg/dL (8.5-10.5) 01/09/24 04:48 Vitals Last Vital Signs Temp 98.2 F 01/09/24 12:00 Pulse 87 01/09/24 12:00 Resp 18 01/09/24 12:19 BP 115/65 01/09/24 12:00 Pulse Ox 90 01/09/24 12:00 O2 Del Method Room Air 01/09/24 12:00 O2 Flow Rate 8 01/08/24 12:09 Discharge Plan Discharge Patient Disposition: Home Health Service Condition: Stable Prescriptions: New acetaminophen 500 mg Tablet 1,000 mg PO Q8H 15 Days Qty: 0 0RF aspirin 325 mg Tablet,Delayed Release (Dr/Ec) 325 mg PO DAILY 30 Days Qty: 0 0RF oxycodone 5 mg Tablet 5 - 10 mg PO Q4H PRN (Reason: Moderate Pain) 7 Days Qty: 30 0RF Continued amlodipine 10 mg tablet 10 mg PO QAM ascorbic acid (vitamin C) 500 mg capsule 500 mg PO QAM garlic 1,000 mg capsule 1,000 mg PO QAM B Complex Plus Vitamin C 62-68-10-5-300 mg capsule 1 cap PO QDAY clonidine HCl 0.1 mg tablet 0.1 mg PO .PRN Botox 100 unit recon soln 155 unit SUBCUT .Q12WKS lisinopril 40 mg tablet 40 mg PO QPM bupropion HCl 300 mg tablet extended release 24 hr 300 mg PO QAM hydroxyzine pamoate 25 mg capsule 25 mg PO TID trazodone 100 mg tablet 100 mg PO QPM rizatriptan 10 mg tablet,disintegrating 10 mg PO Q2H PRN (Reason: headaches) Rx Instructions: do not exceed 3 doses per 24 hrs Aimovig Autoinjector 140 mg/mL auto-injector See Rx Instructions .ROUTE .COMPLEX Qty: 1 2RF Dose Instruction: INJECT 140MG (CONTENTS OF 1 AUTOINJECTOR) UNDER THE SKIN EVERY MONTH TO PRE VENT HEADACHES Rx Instructions: INJECT 140MG (CONTENTS OF 1 AUTOINJECTOR) UNDER THE SKIN EVERY MONTH TO PREVENT HEADACHES multivitamin [Daily Multi-Vitamin] Tablet 1 tab PO QAM cetirizine 10 mg Tablet 10 mg PO QPM venlafaxine 150 mg Capsule,Extended Release 24hr 150 mg PO QAM levetiracetam 1,000 mg Tablet 1,000 mg PO BID calcium carbonate-vitamin D3 [Calcium 600 + D(3)] 600 mg-10 mcg (400 unit) Tablet 1 tab PO QAM Fish Oil 150-217-840 mg Capsule,Delayed Release(Dr/Ec) 1 cap PO QPM melatonin 10 mg Tablet 10 mg PO QPM PRN (Reason: Sleep) PreserVision AREDS-2 250-90-40-1 mg Capsule 1 tab PO BID No Action ondansetron 4 mg tablet,disintegrating 4 mg PO Q8H PRN (Reason: nausea and vomiting) Qty: 14 0RF atorvastatin 40 mg Tablet 20 mg PO QPM doxepin 50 mg Capsule 100 mg PO QPM prazosin 2 mg Capsule 6 mg PO QPM Discharge Orders: Discharge Order (Routine); Ordered 01/09/24 Ordered By: Kiki Lua Other Ambulatory Orders: DME: Walker (Order) Location: None Selected Ordered By: Kiki Lua Referrals: [facility] [Outside] Kiki Lua MD [Physician] - 01/21/24 8:45 am Discharge Diet: Advance as tolerated and Usual diet Discharge Activity: Limit activity as instructed, Use walker/crutches as instructed and As per PT/OT instructions Patient Instructions: Aspirin (By mouth), Oxycodone, Rapid Release (By mouth), Meloxicam (By mouth), Total Knee Replacement (GEN), Joint Replacement Stoplight, Opioid Safety Activity Restrictions/Additional Instructions: Weightbearing as tolerated. Range of motion and strengthening per physical therapy along with gait training. You may shower. Keep clear plastic dressing in place until it comes off on its own. Do not soak knee in water. Discharge Attestations Time Spent in Discharge Care*: greater than 30 min Specific Discharge Activities: educating patient, documenting/other paperwork and evaluating patient/reviewing data Quality Metrics Clinical Quality Measures [ No reported AMI, CVA or VTE this stay] Coding Level of Care Code Acute Code for Chg Fwd Diagnoses Status post total left knee replacement not using cement Z96.652 Primary osteoarthritis of left knee M17.12
== END 2024-01-09 15:00 | disposition home health service (06) ==
LOC: MEDSURG 11:26
PROVIDERS: Nurse Practitioner; Admitting Provider Specialist; PCP Emergency Medicine Emergency Medical Services; Visit Provider Specialist
PROC: 8E0Y0CZ Robotic Assisted Procedure of Lower Extremity, Open Approach (ICD-10-PCS; CPT 27447; principal; 2024-01-08 08:15)
DX: M17.12 Unilateral primary osteoarthritis, left knee (principal); M24.562 Contracture, left knee; M21.162 Varus deformity, not elsewhere classified, left knee; I10 Essential (primary) hypertension; E78.5 Hyperlipidemia, unspecified; Z86.73 Personal history of transient ischemic attack (TIA), and cerebral infarction without residual deficits
CPT/HCPCS: 20985; 27447; 36415; 51702; 73562; 80048; 85025; 97110; 97116; 97161; 97165; 97530; C1776; C9290; G0378; J0131; J0690; J1100; J2371; J2704; J2795; J3370; J3490; J7030

== ENCOUNTER 2024-01-10 10:50 | Emergency (ER) | payer OTHER, SELFPAY ==
[2024-01-10 11:02] VITALS: BP 105/67; PULSE 86; RESP 18; TEMP 36.3; O2SAT 93; BMI 31.3
--- NOTE | 2024-01-10 13:28 | ED_ITS ---
HPI - Extremity Problem 2 General: Chief complaint: Extremity Injury, Lower Stated complaint: knee pain post surgery Time Seen by Provider: 01/10/24 13:23 History of Present Illness: 63-year-old male patient comes in today due to low blood pressure and mild hypoxia this morning. Patient is also had quite a bit of discomfort and pain. Patient had surgery for his knee on Sunday. Patient was discharged yesterday. Patient using oxycodone 5 to 10 mg as needed for pain. Patient is also being given meloxicam daily to help control of inflammation. Patient also takes routine medications for PTSD. Patient appears nontoxic. Patient appears in mild to moderate pain. Review of Systems 2 General: Reports: 10 or more systems reviewed and unremarkable except in HPI and below Musc: Reports: extremity pain PFSH ED 2 PFSH: Medical History Osteoarthritis of right knee Tubular adenoma of colon PTSD (post-traumatic stress disorder) Chronic migraine without aura, intractable, with status migrainosus Surgical History History of cataract extraction with lens replacement Hx of shoulder replacement History of colonoscopy Hx of inguinal hernia repair S/P left rotator cuff repair Family History Other Diabetes Social History Smoking and tobacco/nicotine status: never used tobacco/nicotine Alcohol intake: never Substance/Drug Use: never Physical Exam 2 Const: COMMON NORMALS: alert HENMT: COMMON NORMALS: normocephalic HEAD & SCALP: normocephalic Neck/C-Spine: COMMON NORMALS: full ROM Resp: COMMON NORMALS: normal respiratory effort and clear to auscultation bilaterally AUSCULTATION: clear to auscultation bilaterally Cardio: COMMON NORMALS: regular rate and regular rhythm RATE: regular rate RHYTHM: regular rhythm GI: AUSCULTATION: Yes normoactive bowel sounds PALPATION: Yes Firmness to palpation present (GI), No Tenderness to palpation present (GI) and No Guarding due to palpation present (GI) Back/Pelvis: LUMBAR SPINE/LOWER BACK: No lumbar spinal tenderness and Yes paraspinal muscle tenderness Lumbar paraspinal muscle tenderness: left left lumbar paraspinal muscle tenderness: L4 and L5 Extremity: LEFT LOWER EXTREMITY: Yes knee joint (Well-approximated incision, no redness or fever, ecchymosis) Neuro: SENSORIUM/ORIENTATION: Yes alert Skin: NARRATIVE SKIN EXAM: Well-appearing incision to the left anterior knee. Course 2 Vital Signs: Vital signs: Vital Signs Temperature 97.4 F L 01/10/24 11:02 Pulse Rate 86 01/10/24 15:05 Respiratory Rate 18 01/10/24 11:02 Blood Pressure 105/67 01/10/24 11:02 Pulse Oximetry 90 01/10/24 15:05 Oxygen Delivery Me thod Room Air 01/10/24 15:05 MDM - Extremity (Nontraumatic) Medical Decision Making Patient comes in today for complaints of low blood pressure and mild hypoxia and poor control of pain status post knee replacement surgery on Sunday. On exam wound appears healing well. Patient has some muscle tenderness in his lower lumbar on the left. Significant bruising is noted to the left knee and lower leg at the surgery site. Distal pulses are intact. Blood pressure is 105/67, pulse is 86, patient is afebrile, pulse oxygen is 93% on room air at this time. Differential diagnosis includes adverse drug effect, dehydration, wound infection. 1514, patient reports improvement after 1 L of IV fluid and 15 mg of ketorolac along with 50 mcg of fentanyl. Patient is creatinine was 2.0. I believe patient most likely has some dehydration secondary to poor oral intake postsurgery. Will go ahead and repeat another liter of IV fluids to help with blood pressure and dehydration. 1620, patient had significant improvement of pain and discomfort. We will recommend continuation of plan of care we will add some Zofran to patient's regimen to help with any nausea. Patient and spouse both reported understanding. Lab Data 01/10/24 13:40 01/10/24 13:40 Laboratory Results WBC 5.31 10^3/uL (3.29-11.43) 01/10/24 13:40 RBC 3.60 10^6/uL (3.85-5.65) L 01/10/24 13:40 Hgb 11.00 g/dL (11.27-16.99) L 01/10/24 13:40 Hct 33.4 % (37-53) L 01/10/24 13:40 MCV 92.8 fl (82-101) 01/10/24 13:40 MCH 30.6 pg (27-33) 01/10/24 13:40 MCHC 32.9 g/dL (30-55) 01/10/24 13:40 RDW 12.9 % (12.1-15.1) 01/10/24 13:40 Plt Count 179 10^3/cmm (157-399) 01/10/24 13:40 MPV 9.3 fL (7.4-10.4) 01/10/24 13:40 Neut % (Auto) 74.2 % 01/10/24 13:40 Lymph % (Auto) 14.3 % 01/10/24 13:40 [place] % (Auto) 9.0 % 01/10/24 13:40 Eos % (Auto) 1.9 % 01/10/24 13:40 Baso % (Auto) 0.2 % 01/10/24 13:40 Neut # (Auto) 3.94 10^3/uL (1.8-7.7) 01/10/24 13:40 Lymph # (Auto) 0.8 10^3/uL (0.8-4.8) 01/10/24 13:40 [place] # (Auto) 0.5 10^3/uL (0.2-0.9) 01/10/24 13:40 Eos # (Auto) 0.1 10^3/uL (0.0-0.8) 01/10/24 13:40 Baso # (Auto) 0.0 10^3/uL (0.0-0.1) 01/10/24 13:40 Nucleated RBC % (auto) 0 % 01/10/24 13:40 Nucleated RBCs # 0.0 /100WBC 01/10/24 13:40 Sodium 136 mmol/L (136-145) 01/10/24 13:40 Potassium 4.2 mmol/L (3.5-5.1) 01/10/24 13:40 Chloride 99 mmol/L (98-107) 01/10/24 13:40 Carbon Dioxide 26 mmol/L (22-29) 01/10/24 13:40 Anion Gap 15.2 (5-19) 01/10/24 13:40 BUN 33 mg/dL (8-23) H 01/10/24 13:40 Creatinine 2.0 mg/dL (0.7-1.2) H 01/10/24 13:40 GFR Calculation 34.0 mL/min (90-130) L 01/10/24 13:40 Glucose 116 mg/dL (65-115) H 01/10/24 13:40 Calculated Osmolality 290 mOsm/kg (285-295) 01/10/24 13:40 Calcium 8.2 mg/dL (8.5-10.5) L 01/10/24 13:40 Total Bilirubin 0.5 mg/dL (0.15-1.2) 01/10/24 13:40 AST 16 U/L (0-40) 01/10/24 13:40 ALT 15 U/L (0-41) 01/10/24 13:40 Alkaline Phosphatase 74 U/L (40-130) 01/10/24 13:40 Total Protein 6.6 g/dL (6.6-8.7) 01/10/24 13:40 Albumin 4.1 g/dL (3.5-5.2) 01/10/24 13:40 Globulin 2.5 g/dL (1.3-4.6) 01/10/24 13:40 All radiology interpretation(s) finalized by discharge Discharge Plan Discharge Patient Disposition: Home Clinical Impression: Acute dehydration, Post-operative pain Condition: Stable Prescriptions: New ondansetron 4 mg tablet,disintegrating 4 mg PO Q8H PRN (Reason: nausea and vomiting) Qty: 14 0RF No Action doxepin 100 mg capsule 100 mg PO QPM amlodipine 10 mg tablet 10 mg PO QDAY ascorbic acid (vitamin C) 500 mg capsule 500 mg PO DAILY garlic 1,000 mg capsule 1,000 mg PO QDAY magnesium oxide 500 mg capsule 500 mg PO QDAY B Complex Plus Vitamin C 73-92-13-5-300 mg capsule 1 cap PO QDAY clonidine HCl 0.1 mg tablet 0.1 mg PO .PRN Botox 100 unit recon soln 155 unit SUBCUT .Q12WKS aspirin [Adult Aspirin Regimen] 81 mg tablet,delayed release (DR/EC) 81 mg PO QDAY lisinopril 40 mg tablet 40 mg PO QPM atorvastatin 20 mg tablet 20 mg PO QDAY bupropion HCl 300 mg tablet extended release 24 hr 300 mg PO QAM hydroxyzine pamoate 25 mg capsule 25 mg PO BID PRN (Reason: unknown) trazodone 100 mg tablet 100 mg PO DAILY prazosin 5 mg capsule 5 mg PO DAILY rizatriptan 10 mg tablet,disintegrating 10 mg PO Q2H PRN (Reason: headaches) Rx Instructions: do not exceed 3 doses per 24 hrs Aimovig Autoinjector 140 mg/mL auto-injector See Rx Instructions .ROUTE .COMPLEX Qty: 1 2RF Dose Instruction: INJECT 140MG (CONTENTS OF 1 AUTOINJECTOR) UNDER THE SKIN EVERY MONTH TO PREVENT HEADACHES Rx Instructions: INJECT 140MG (CONTENTS OF 1 AUTOINJECTOR) UNDER THE SKIN EVERY MONTH TO PREVENT HEADACHES multivitamin [Daily Multi-Vitamin] Tablet 1 tab PO DAILY cetirizine 10 mg Tablet 10 mg PO DAILY venlafaxine 150 mg Capsule,Extended Release 24hr 150 mg PO DAILY levetiracetam 1,000 mg Tablet 1,000 mg PO BID calcium carbonate-vitamin D3 [Calcium 600 + D(3)] 600 mg-10 mcg (400 unit) Tablet 1 tab PO DAILY Fish Oil 150-217-840 mg Capsule,Delayed Release(Dr/Ec) 1 cap PO DAILY melatonin 10 mg Tablet 10 mg PO QPM PRN (Reason: Sleep) PreserVision AREDS-2 250-90-40-1 mg Capsule 1 tab PO BID acetaminophen 500 mg Tablet 1,000 mg PO Q8H 15 Days Qty: 0 0RF aspirin 325 mg Tablet,Delayed Release (Dr/Ec) 325 mg PO DAILY 30 Days Qty: 0 0RF oxycodone 5 mg Tablet 5 - 10 mg PO Q4H PRN (Reason: Moderate Pain) 7 Days Qty: 30 0RF meloxicam 15 mg tablet 15 mg PO DAILY Qty: 30 1RF Discharge Orders: Discharge ED (Routine); Ordered 01/10/24 Ordered By: Tre Chase Referrals: Bi Boss DO [Primary Care Provider] - Discharge Diet: Usual diet Discharge Activity: Increase activity as tolerated Patient Instructions: Opioid Safety, Pain Management Activity Restrictions/Additional Instructions: Drink plenty of fluids. Use ondansetron as needed for nausea. Try to consume at least 2 L of fluid a day. Continue with routine medications as directed. Follow-up with primary care for further instructions. Return to ER for worsening symptoms such as inability to hold fluids down, fever greater than 100.4, or new concerns. Coding Level of Care Code ED [employer] Supervisor for Emi Taylor
--- NOTE | 2024-01-10 13:28 | XR_ITS ---
WS: [id number] Portable AP upright chest, 01/10/2024 Clinical Data: weakness Comparison: Portable chest, 03/26/2023 Findings: No nodules, masses or effusions are seen. The heart is normal. The pulmonary vascularity is not increased. No pneumonia or pneumothorax is seen. There are minimal areas of atelectasis overlyin g the left diaphragm. There is a reverse left shoulder arthroplasty. Impression: Negative chest.
[2024-01-10 13:57] LABS: Basophils % 0.2 %; Eosinophils # 0.1 10^3/uL (0.0-0.8); Eosinophils % 1.9 %; Hematocrit 33.4 % (37-53); Lymphocytes # 0.8 10^3/uL (0.8-4.8); Lymphocytes % 14.3 %; Mean Corpuscular HGB Conc 32.9 g/dL (30-55); Mean Corpuscular Hemoglobin 30.6 pg (27-33); Mean Corpuscular Volume 92.8 fl (82-101); Mean Platelet Volume 9.3 fL (7.4-10.4); Monocytes # 0.5 10^3/uL (0.2-0.9); Neutrophils # 3.94 10^3/uL (1.8-7.7); Neutrophils % 74.2 %; Nucleated Red Blood Cells % 0 %; Platelet Count 179 10^3/cmm (157-399); Red Cell Distribution Width 12.9 % (12.1-15.1); White Blood Count 5.31 10^3/uL (3.29-11.43)
[2024-01-10 14:07] LABS: Alanine Aminotransferase 15 U/L (0-41); Albumin Level 4.1 g/dL (3.5-5.2); Alkaline Phosphatase 74 U/L (40-130); Anion Gap 15.2 (5-19); Aspartate Amino Transferase 16 U/L (0-40); Blood Urea Nitrogen 33 mg/dL (8-23); Calcium 8.2 mg/dL (8.5-10.5); Carbon Dioxide 26 mmol/L (22-29); Chloride 99 mmol/L (98-107); Creatinine Clr Calc Pharmacy 41.1381; Globulin 2.5 g/dL (1.3-4.6); Glucose 116 mg/dL (65-115); Osmolality Calculated 290 mOsm/kg (285-295); Potassium 4.2 mmol/L (3.5-5.1); Sodium 136 mmol/L (136-145); Total Bilirubin 0.5 mg/dL (0.15-1.2); Total Protein 6.6 g/dL (6.6-8.7)
[2024-01-10] MEDS: ketorolac 30 mg/mL INJ 15 MG IVP (14:09)
[2024-01-10] MEDS: fentaNYL 50 mcg/mL INJ 2mL IVP ×2 (14:09→16:37)
[2024-01-10] MEDS: sodium chloride 0.9% 1,000 ML 999 ML IV (14:20)
--- NOTE | 2024-01-10 15:04 | PC.PHAR ---
Addendum entered by Ghazala Rodriguez 01/10/24 15:45: refaxed 3:45pm Original Note: PT IS [facility] FOR MED LIST 3PM 01/10/24
[2024-01-10 15:05] VITALS: PULSE 86; O2SAT 90
[2024-01-10] MEDS: lactated ringers 1,000 ML 999 ML IV (15:19)
[2024-01-10 17:25] VITALS: PULSE 94; O2SAT 90
== END 2024-01-10 17:27 | disposition home or self-care (01) ==
PROVIDERS: Emergency Provider Nurse Practitioner Family; PCP Emergency Medicine Emergency Medical Services
DX: G89.18 Other acute postprocedural pain (principal); E86.0 Dehydration; Z79.82 Long term (current) use of aspirin
CPT/HCPCS: 36415; 71045; 80053; 85025; 96361; 96374; 96375; 96376; 99284; J1885; J3010; J7030; J7120

== ENCOUNTER → 2024-01-21 08:49 | Outpatient (BNVA) | payer OTHER, SELFPAY | PROVIDERS: PCP Emergency Medicine Emergency Medical Services; Visit Provider Nurse Practitioner | DX: Z96.652 Presence of left artificial knee joint (principal) | CPT/HCPCS: 73560; 73565; 99024 ==

== ENCOUNTER → 2024-03-10 13:31 | Outpatient (BNVA) | payer OTHER, SELFPAY | PROVIDERS: PCP Emergency Medicine Emergency Medical Services; Visit Provider Specialist | DX: Z96.652 Presence of left artificial knee joint (principal); Z98.890 Other specified postprocedural states | CPT/HCPCS: 73560; 73565; 99024 ==

== ENCOUNTER → 2024-03-20 08:25 | Outpatient (BNVA) | payer OTHER, SELFPAY | PROVIDERS: PCP Emergency Medicine Emergency Medical Services; Visit Provider Specialist | DX: G43.711 Chronic migraine without aura, intractable, with status migrainosus (principal) | CPT/HCPCS: 64615; J0585 ==

== ENCOUNTER → 2024-04-16 13:42 | Outpatient (BNVA) | payer OTHER, SELFPAY | PROVIDERS: PCP Emergency Medicine Emergency Medical Services; Visit Provider Specialist | DX: Z96.652 Presence of left artificial knee joint (principal) | CPT/HCPCS: 73560; 73565; 99213 ==

== ENCOUNTER → 2024-06-19 10:48 | Outpatient (BNVA) | payer OTHER, SELFPAY | PROVIDERS: PCP Emergency Medicine Emergency Medical Services; Visit Provider Specialist | DX: G43.711 Chronic migraine without aura, intractable, with status migrainosus (principal); R11.0 Nausea | CPT/HCPCS: 64615; 96372; J0585; J2405 ==

== ENCOUNTER → 2024-07-09 12:39 | Outpatient (BNVA) | payer OTHER, SELFPAY | PROVIDERS: PCP Emergency Medicine Emergency Medical Services; Visit Provider Internal Medicine | DX: R42 Dizziness and giddiness (principal); R06.09 Other forms of dyspnea; Z87.891 Personal history of nicotine dependence | CPT/HCPCS: 36415; 80048; 83880; 93005; 99214 ==

== ENCOUNTER → 2024-07-16 14:01 | Outpatient (BNVA) | payer OTHER, SELFPAY | PROVIDERS: PCP Emergency Medicine Emergency Medical Services; Visit Provider Specialist | DX: Z96.652 Presence of left artificial knee joint (principal) | CPT/HCPCS: 73560; 73565; 99213 ==

== ENCOUNTER 2024-08-12 13:52 | Outpatient (CLI) | payer OTHER, SELFPAY ==
--- NOTE | 2024-08-12 11:45 | USCV_ITS ---
Cecilio Vanegas Age: 63 Gender: M : 1960 Exam Date: 08/12/2024 14:14 Ordering Phys: Boyd Alcazar M.D ([email or web address]) Technologist: CHEN Exam Location: [facility] [place] [facility] [place] Indication: shortness of breath BP: 138 / 88 HR: 69 Rhythm: Sinus Technical Quality: Adequate MEASUREMENTS (Male / Female) Normal Values 2D ECHO LV Diastolic Diameter PLAX 4.5 cm 4.2 - 5.9 / 3.9 - 5.3 cm IVS Diastolic Thickness 1.5 cm 0.6 - 1.0 / 0.6 - 0.9 cm IVS Systolic Thickness 2.2 cm LVPW Diastolic Thickness 2.0 cm 0.6 - 1.0 / 0.6 - 0.9 cm LVPW Systolic Thickness 2.9 cm LVOT Diameter 2.0 cm LV Ejection Fraction 2D Teich 61.8 % LV Ejection Fraction MOD 4C 53.6 % LV Ejection Fraction MOD 2C 54.9 % LV Ejection Fraction 2C AL 57.0 % LA Diameter 3.9 cm RA Systolic Volume 4C AL 28.8 ml RA Systolic Volume 4C MOD 27.8 ml LA Sys Volume AL 45.3 cm cubed LA Sys Volume Index AL 20.8 cm cubed/m squared Aorta at Sinotubular Diameter 3.4 cm IVC Diameter 2.0 cm M-MODE LA Ao Ratio MM 1.0 AV Cusp Separation MM 2.3 cm DOPPLER AV Peak Velocity 295.3 cm/s LVOT Peak Velocity 84.0 cm/s AV Area Cont Eq vti 2.3 cm squared AV Area Cont Eq pk 0.9 cm squared MV Peak Velocity 213.7 cm/s MV Area PHT 3.7 cm squared Mitral E to A Ratio 0.9 TR Peak Velocity 210.0 cm/s TR Peak Gradient 17.6 mmHg TR Mean Velocity 176.0 cm/s TR Mean Gradient 13.2 mmHg TR Velocity Time Integral 69.9 cm TV Peak E Velocity 43.0 cm/s Right Atrial Pressure 3.0 mmHg Pulmonary Artery Systolic Pressu 20.6 mmHg PV Peak Velocity 88.0 cm/s RV Ejection Time 0.3 s FINDINGS Left Ventricle Normal LV size ejection fraction of 55%.no regional wall motion abnormalities. Grade I/IV diastolic dysfunction (abnormal relaxation filling pattern), normal to mildly elevated filling pressures. Right Ventricle The right ventricle is normal in size and function. Right Atrium The right atrium is normal in size. Left Atrium The left atrium is normal in size. Mitral Valve Trace mitral valve regurgitation. Aortic Valve Trace to mild aortic valve regurgitation. Tricuspid Valve Trace tricuspid valve regurgitation. Pulmonic Valve No gross abnormalities noted Pericardium Normal pericardium without effusion. Aorta Mildly dilated aortic root measuring 4.2 cm at the level of the sinuses IVC Normal inferior vena cava. CONCLUSIONS Normal LV size ejection fraction of 55%.no regional wall motion abnormalities. Grade I/IV diastolic dysfunction (abnormal relaxation filling pattern), normal to mildly elevated filling pressures. Trace mitral valve regurgitation. Trace to mild aortic valve regurgitation. Trace tricuspid valve regurgitation. Mildly dilated aortic root measuring 4.2 cm at the level of the sinuses. There is no pericardial effusion. There are no intracardiac masses. Mildly dilated aortic root measuring 4.2 cm at the level of the sinuses Compared to the study from 05/09/2023, there may not be significant change. Dr Erika Hylton MD FACC (Electronically Signed) Final Date: 16 August 2024 17:29 S
== END 2024-08-12 13:53 | disposition home or self-care (01) ==
LOC: RAD 13:53
PROVIDERS: PCP Nurse Practitioner Family; Visit Provider Internal Medicine
DX: I50.30 Unspecified diastolic (congestive) heart failure (principal); R06.09 Other forms of dyspnea
CPT/HCPCS: 93306

== ENCOUNTER 2024-09-23 12:37 | Outpatient (CLI) | payer OTHER, SELFPAY ==
--- NOTE | 2024-09-23 12:41 | MR_ITS ---
WS: [id number] MRI RIGHT SHOULDER HISTORY: RIGHT SHOULDER PAIN COMPARISON: None available. TECHNIQUE: Multiplanar sequences of the shoulder joint are submitted. Moderate to severe AC joint arthritis. Joint space is narrowed with osteophytic and soft tissue hyper trophy involving the distal clavicle and the acromion. Osteophytes encroach upon the myotendinous por tion of the supraspinatus. No significant subacromial impingement. There is a very small amount of fl uid in the subacromial bursa. No os acromion. Abnormal biceps tendon. Biceps tendon is no longer in t he bicipital groove. High-grade tear of the biceps tendon with dislocation. There is increased fluid in the biceps tendon sheath. Biceps tendon is noted perched adjacent to the lesser trochanter. Mildly high riding humeral head. Mild narrowing of the glenohumeral joint. Subchondral cystic changes in the posterior lateral superior humeral head. Very small bursal surface tear approximately 2 mm of the distal supraspinatus tendon at the level of the acromial osteophyte. There is no retraction of t he supraspinatus. Mild heterogeneity of the distal subscapularis tendon but no tear is identified. In fraspinatus tendon is normal. No labral tear. Small defect in the cartilage of the superior glenoid i ntrasubstance degeneration also in the superior labrum. MR/MR shoulder RT wo con* [id number] IMPRESSION: 1. Moderate to severe AC joint arthritis. 2. Torn dislocated biceps tendon with increased fluid in the biceps tendon she ath. Biceps tendon is dislocated external to the bicipital groove. 3. Very small bursal surface tear of the supraspinatus tendon at the level of the acromion osteophyte. 4. Moderate tendinopathy of the distal subscapularis tendon. 5. Cartilage defect along the superior glenoid adjacent to intrasubstance dege neration in the labrum.
== END 2024-09-23 12:38 | disposition home or self-care (01) ==
LOC: RAD 12:37
PROVIDERS: PCP Nurse Practitioner Family; Visit Provider Nurse Practitioner Family
DX: M19.011 Primary osteoarthritis, right shoulder (principal); S46.211A Strain of muscle, fascia and tendon of other parts of biceps, right arm, initial encounter; M75.51 Bursitis of right shoulder; M75.91 Shoulder lesion, unspecified, right shoulder; X58.XXXA Exposure to other specified factors, initial encounter
CPT/HCPCS: 73221

== ENCOUNTER → 2024-09-26 10:30 | Outpatient (BNVA) | payer OTHER, SELFPAY | PROVIDERS: PCP Nurse Practitioner Family; Visit Provider Specialist | DX: G43.711 Chronic migraine without aura, intractable, with status migrainosus (principal) | CPT/HCPCS: 64615; J0585 ==

== ENCOUNTER → 2024-12-19 10:49 | Outpatient (BNVA) | payer OTHER, SELFPAY | PROVIDERS: PCP Nurse Practitioner Family; Visit Provider Specialist | DX: G43.711 Chronic migraine without aura, intractable, with status migrainosus (principal) | CPT/HCPCS: 64615; J0585 ==

== ENCOUNTER → 2025-01-06 12:28 | Outpatient (BNVA) | payer OTHER, SELFPAY | PROVIDERS: PCP Nurse Practitioner Family; Visit Provider Internal Medicine | DX: R42 Dizziness and giddiness (principal); R06.09 Other forms of dyspnea | CPT/HCPCS: 99214 ==

== ENCOUNTER → 2025-03-02 13:08 | Outpatient (BNVA) | payer OTHER, SELFPAY | PROVIDERS: PCP Nurse Practitioner Family; Visit Provider Specialist | DX: Z96.652 Presence of left artificial knee joint (principal) | CPT/HCPCS: 73560; 73565; 99213 ==

== ENCOUNTER → 2025-03-20 10:25 | Outpatient (BNVA) | payer OTHER, SELFPAY | PROVIDERS: PCP Nurse Practitioner Family; Visit Provider Specialist | DX: G43.711 Chronic migraine without aura, intractable, with status migrainosus (principal) | CPT/HCPCS: 64615; J0585; J9999 ==

== ENCOUNTER 2025-05-21 12:10 | Observation (INO) | payer OTHER, MEDICARE, SELFPAY ==
--- OUTSIDE RECORDS SUMMARY | 2025-05-14 13:00 | XMS_ITS | Encounter Summary ---
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 Name Role Phone Reny Delgado APRN Primary Care Provider [phone] Reason for Referral * Consultation (Routine) - Pending Review Specialty Diagnoses / Procedures Referred By Josesito reagan Referred To Contact Physical Therapy Diagnoses S/P arthroscopy of right shoulder Procedures DE PHYSICAL THERAPY EVALUATION LOW COMPLEX 20 MINS DE PHYSICAL THERAPY EVALUATION MOD COMPLEX 30 MINS DE THERAPEUTIC PX 1/> AREAS EACH 15 MIN EXERCISES DE SELF-CARE/HOME MGMT TRAINING EACH 15 MINUTES Jorge Crowder MD [address] [place] [phone] Phone: tel: fax: [address] [address] Phone: tel: fax: Referral ID Status Reason Start Date Expiration Date Visits Requested Visits Authorized [id number] Pending Review Specialty Services Required 05/14/2025 05/14/2026 1 1 Reason for Visit * Reason Comments Follow-up Encounter Details Date Type Department Care Team (Late st Contact Info) Description 05/14/2025 1:00 PM CDT Office [facility] [address] [place] [phone] Jorge Crowder MD [address] [place] [phone] S/P arthroscopy of right shoulder (Primary Dx) Social History Tobacco Use Types Packs/Day Years Used Date Smoking Tobacco: Former Cigarettes 1 1 2 006 - 2006 Smokeless Tobacco: Former Chew Alcohol Use Standard Drinks/Week Comments Never 0 (1 standard drink = 0.6 oz pur e alcohol) PHQ-2 Answer Date Recorded Patient Health Questionnaire-2 Score 0 04/02/[address] [facility] - Mental Health Answer Date Recorde d Little interest or pleasure in doing things Not at all 04/02/2025 Feeling down, depressed, or hopeless Not at all 04/02/2025 Feeling of Stress Not on file 04/02/2025 Sex and Gender Information Value Date Recorded Sex Assigned at Not on file Legal Sex Male 10:57 AM CDT Gender Identity Not on file Sexual Orientation Not on file documented as of this encounter Last Filed Vital Signs Vital Sign Reading Time Taken Comments Blood Pressure 145/81 05/14/2025 1:22 PM CDT provider notified, declined 2nd attempt Pulse 81 05/14/2025 1:22 PM CDT Temperature 36.6 C (97.9 F) 05/14/2025 1:22 PM CDT Respiratory Rate 17 05/14/2025 1:22 PM CDT Oxygen Saturation 95% 05/14/2025 1:2 2 PM CDT Inhaled Oxygen Concentration - - Weight 96.5 kg (212 lb 12.8 oz) 05/14/2025 1:22 PM CDT Height 170.2 cm (5' 7 ) 05/14/2025 1:22 PM CDT Body Mass Index 33.33 05/14/2025 1:22 PM CDT documented in this encounter Patient Instructions * Patient Instructions* Jorge Crowder MD - 05/14/2025 1:00 PM CDT Continue working with PT and doing shoulder exercises at home. Follow up in 6 weeks. documented in this encounter Progress Notes * Jorge Crowder MD - 05/14/2025 1:00 PM CDT Subjective Patient ID: Cecilio Vanegas is a 64 y.o. male. Chief Complaint: Follow-up of the Right Shoulder Here today for right shoulder f/u; DOS 02/09/2025 Working with PT. Pain and ROM improving but does have some pain after lifting a concrete birdbath. Previous Orthopedic Surgery: Right shoulder arthroscopic rotator cuff repair utilizing Regeneten system for the supraspinatus, biceps tenodesis, distal clavicle excision, extensive debridement, subacromial decompression 02/09/2025 Left shoulder arthroscopic rotator cuff repair, biceps tenodesis to bone, extensive debridement, subacromial decompression 05/29/2018. Pain Assessment Pain Score: 1 Pain Location: Shoulder Pain Orientation: Right Past Medical History: Diagnosis Date Adverse effect of anesthesia history of PTSD - has history of being combative in recovery - is able to help him calm Arthritis Arthritis of right acromioclavicular joint Cancer (CMS/HCC) skin Chronic pain disorder Complete tear of right rotator cuff Depression Fractures history of left foot; history of left knee; history of left ankle and nose GERD (gastroesophageal reflux disease) High cholesterol HL (hearing loss) bilateral hearing aides Hypertension Insomnia Joint pain Other injury of muscle, fascia and tendon of long head of biceps, right arm, initial encounter PTSD (post-traumatic stress disorder) takes Keppra for this Superior glenoid labrum lesion of right shoulder Syncope in 2005 and 2023 - unknown cause TIA (transient ischemic attack) 2013 Review of Systems Objective Visit Vitals BP (!) 145/81 Comment: provider notified, declined 2nd attempt Pulse 81 Temp 97.9 ??F (36.6 ??C) (Temporal) Resp 17 Ht 1.702 m (5' 7 ) Wt 96.5 kg (212 lb 12.8 oz) SpO2 95% BMI 33.33 kg/m?? Smoking Status Former BSA 2.08 m?? Right Shoulder Exam Comments: Inspection: incisions are well healed. Shoulder range of motion testing: Passive forward elevation: 165 Active forward elevation: 160 Passive external rotation: 65 Internal rotation: L5 Distally the patient can make an okay sign, thumbs up, and cross their fingers. Sensation is intact to light touch in the median, radial, and ulnar nerve distributions. Patient has a palpable radial pulse. Assessment/Plan Encounter Diagnoses: Diagnosis Plan 1. S/P arthroscopy of right shoulder Patient Instructions Continue working with PT and doing shoulder exercises at home. Follow up in 6 weeks. Follow up in about 6 weeks (around 06/25/2025). No orders of the defined types were placed in this encounter. documented in this encounter Miscellaneous Notes * Addendum Note - Karon Arellano LPN - 05/14/2025 1:00 PM CDTAddended by: KARON ARELLANO on: 05/14/2025 01:36 PM Modules accepted: Orders documented in this encounter Plan of Treatment Upcoming Encounters Date Type Department Care Team (Late st Contact Info) Description 06/30/2025 11:15 AM CDT Office Visit [facility] [address] [place] [phone] Jorge Crowder MD [address] [place] [phone] Scheduled Referrals Name Type Priority Associated Diagnoses Orde r Schedule Ambulatory referral to Physical Therapy Outpatient Referral Routine S/P arthroscopy of right shoulder Expected: 05/14/2025 (Approximate), Expires: 05/14/2026 documented as of this encounter Visit Diagnoses Diagnosis S/P arthroscopy of right shoulder- Primary documented in this encounter Care Teams Earth Auger Operator Relationship Specialty Start Date End Date Reny Delgado APRN [address] [facility] [place] [address] PCP - General 02/02/25 documented as of this encounter
[2025-05-21 12:13] VITALS: BP 115/65; PULSE 75; RESP 18; TEMP 36.6; O2SAT 93
--- NOTE | 2025-05-21 12:13 | ECG_ITS ---
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
--- NOTE | 2025-05-21 12:24 | W.ED.SYNCOPE ---
HPI - Syncope General: Chief Complaint: Syncope Stated Complaint: syncope Time Seen by Provider: 05/21/25 12:10 History of Present Illness: 64-year-old male presents emergency room after syncopal episode at home he was getting dressed not doing anything strenuous got lightheaded dizzy and passed out he had a similar episode previously. He had previous evaluation occluding cardiac stress test which he was told was negative he was found to have some carotid stenosis. It was not significant enough for them to do any evaluation on it. He has not previously had any coronary angiogram no history of any arrhythmias. He is fully recovered at the time that I seen him he is somewhat feeling weak yet but otherwise back at his baseline. Associated symptoms: Deny abdominal pain, chest pain or fever(s) Related Data Home Medications ?Medication ?Instructions ?Recorded ?Confirmed amlodipine 10 mg tablet 10 mg PO QAM 11/20/19 05/21/25 ascorbic acid (vitamin C) 500 mg 500 mg PO QAM 11/20/19 05/21/25 capsule garlic 1,000 mg capsule 1,000 mg PO QAM 11/20/19 05/21/25 lisinopril 40 mg tablet 40 mg PO QPM 11/20/19 05/21/25 vitamin B comp and C no.3 15 mg-10 1 cap PO QDAY 11/20/19 05/21/25 mg-50 mg-5 mg-300 mg capsule (B Complex Plus Vitamin C) trazodone 100 mg tablet 100 mg PO QPM 06/27/22 05/21/25 calcium 600 mg (as 2 tab PO QAM 03/26/23 05/21/25 carbonate)-vitamin D3 10 mcg (400 unit) tablet (Calcium 600 + D(3)) cetirizine 10 mg tablet 10 mg PO QPM PRN allergies 03/26/23 05/21/25 levetiracetam 1,000 mg tablet 1,000 mg PO BID 03/26/23 05/21/25 multivitamin (Daily Multi-Vitamin 1 tab PO QAM 03/26/23 05/21/25 tablet) omega 6-fwe-mrz-fish oil 150 1 cap PO QPM 03/26/23 05/21/25 mg-217 mg-840 mg capsule,delayed release (Fish Oil) venlafaxine 150 mg 150 mg PO QAM 03/26/23 05/21/25 capsule,extended release 24 hr vit C 250 mg-vit E 90 mg-zinc 40 1 tab PO BID 03/26/23 05/21/25 mg-copper 1 gx-tjoiaw-rdpduv capsule (PreserVision AREDS-2) rizatriptan 10 mg disintegrating 10 mg PO Q2H PRN headaches 06/14/23 05/21/25 tablet atorvastatin 40 mg tablet 20 mg PO QPM 01/10/24 05/21/25 doxepin 50 mg capsule 100 mg PO QPM 01/10/24 05/21/25 prazosin 2 mg capsule 6 mg PO QPM 01/10/24 05/21/25 meloxicam 15 mg tablet 15 mg PO DAILY 09/26/24 05/21/25 cyclobenzaprine 10 mg tablet 10 mg PO TID PRN Muscle Spasm 05/21/25 05/21/25 docusate sodium 100 mg capsule 100 mg PO BID PRN Constipation 05/21/25 05/21/25 (Colace) fluticasone propionate 50 1 spray intranasal DAILY 05/21/25 05/21/25 mcg/actuation nasal spray,suspension hydrochlorothiazide 25 mg tablet 25 mg PO DAILY 05/21/25 05/21/25 hydrocodone 10 mg-acetaminophen 1 tab PO Q8H PRN Pain 05/21/25 05/21/25 325 mg tablet hydroxyzine HCl 25 mg tablet 25 mg PO QID 05/21/25 05/21/25 mirtazapine 30 mg tablet 15 mg PO BEDTIME 05/21/25 05/21/25 sildenafil 100 mg tablet See Rx Instructions .Route 05/21/25 05/21/25 .COMPLEX PRN Erectile Dysfunction Previous Rx's ?Medication ?Instructions ?Recorded erenumab-aooe 140 mg/mL See Rx Instructions .Route 05/04/25 subcutaneous auto-injector .COMPLEX #1 mL (Aimovig Autoinjector) Allergies Allergy/AdvReac Type Severity Reaction Status Date / Time No Known Allergies Allergy Verified 03/20/25 10:58 Review of Systems Const: Denies: fever(s) or chills Card: Denies: chest pain Resp: Denies: dyspnea GI: Denies: abdominal pain : Denies: dysuria, urinary frequency or urinary urgency Musc: Denies: neck pain or back pain Skin/Breast: Denies: rash PFSH ED PFSH: Medical History Osteoarthritis of right knee Tubular adenoma of colon PTSD (post-traumatic stress disorder) Chronic migraine without aura, intractable, with status migrainosus Surgical History History of cataract extraction with lens replacement Hx of shoulder replacement History of colonoscopy Hx of inguinal hernia repair S/P left rotator cuff repair Family History Other Diabetes Social History Smoking and tobacco/nicotine status: former use of tobacco/nicotine Alcohol intake: never Substance/Drug Use: never Physical Exam Const: GENERAL APPEARANCE: cooperative ORIENTATION/CONSCIOUSNESS: Yes awake, Yes oriented to person, Yes oriented to place and Yes oriented to time HENMT: COMMON NORMALS: normocephalic, atraumatic and hearing grossly normal bilaterally HEAD & SCALP: normocephalic and atraumatic Resp: COMMON NORMALS: normal respiratory effort, No retractions, No use of accessory muscles and clear to auscultation bilaterally AUSCULTATION: clear to auscultation bilaterally Cardio: COMMON NORMALS: regular rate, regular rhythm and No murmurs present (Cardio) RATE: regular rate RHYTHM: regular rhythm GI: COMMON NORMALS: Soft to palpation and No hepatosplenomegaly present AUSCULTATION: Yes normoactive bowel sounds PALPATION: Yes Soft to palpation, No Tenderness to palpation present (GI), No Guarding due to palpation present (GI) and Yes No hepatosplenomegaly present Extremity: COMMON NORMALS: normal to inspection, capillary refill normal, no clubbing, cyanosis or edema, no calf tenderness and no pedal edema Neuro: SENSORIUM/ORIENTATION: Yes oriented to person, Yes oriented to place and Yes oriented to time OTHER: No focal neurologic deficits Skin: COMMON NORMALS: no rashes or lesions noted GENERAL SKIN EXAM: no rashes or lesions noted Course Vital Signs: Vital signs: Vital Signs Temperature 97.9 F 05/21/25 12:13 Pulse Rate 75 05/21/25 12:13 Respiratory Rate 18 05/21/25 12:13 Blood Pressure 115/65 05/21/25 12:13 Pulse Oximetry 93 05/21/25 12:13 Oxygen Delivery Me thod Room Air 05/21/25 12:13 MDM - Syncope Medical Decision Making Acute kidney injury and syncope. IV fluids discussed with hospitalist will admit. May need further imaging once kidney function improves. Patient has had episodes before. In 2022 he had a similar episode he had an echocardiogram at that time as well as a cardiac event monitor and a stress test. Echocardiogram mild dilation of the ascending aortic root. There is no chest pain or pain rating to his back today. Normal aortic valve. There is no significant finding on a previous Holter monitor. Lexiscan sestamibi stress test showed no evidence of ischemia. Medical Records I reviewed the patient's medical records. Lab Data I reviewed the patient's lab results. 05/21/25 12:20 05/21/25 12:20 Radiology Impressions Chest X-Ray 05/21/25 13:08 Impression: Negative chest. Laboratory Results WBC 5.05 10^3/uL (3.29-11.43) 05/21/25 12:20 RBC 4.12 10^6/uL (3.85-5.65) 05/21/25 12:20 Hgb 12.40 g/dL (11.27-16.99) 05/21/25 12:20 Hct 36.4 % (37-53) L 05/21/25 12:20 MCV 88.3 fl (82-101) 05/21/25 12:20 MCH 30.1 pg (27-33) 05/21/25 12:20 MCHC 34.1 g/dL (30-55) 05/21/25 12:20 RDW 11.7 % (12.1-15.1) L 05/21/25 12:20 Plt Count 166 10^3/cmm (157-399) 05/21/25 12:20 MPV 9.0 fL (7.4-10.4) 05/21/25 12:20 Neut % (Auto) 62.8 % 05/21/25 12:20 Lymph % (Auto) 27.9 % 05/21/25 12:20 Meagher % (Auto) 7.3 % 05/21/25 12:20 Eos % (Auto) 1.2 % 05/21/25 12:20 Baso % (Auto) 0.6 % 05/21/25 12:20 Neut # (Auto) 3.17 10^3/uL (1.8-7.7) 05/21/25 12:20 Lymph # (Auto) 1.4 10^3/uL (0.8-4.8) 05/21/25 12:20 Meagher # (Auto) 0.4 10^3/uL (0.2-0.9) 05/21/25 12:20 Eos # (Auto) 0.1 10^3/uL (0.0-0.8) 05/21/25 12:20 Baso # (Auto) 0.0 10^3/uL (0.0-0.1) 05/21/25 12:20 Nucleated RBC % (auto) 0 % 05/21/25 12:20 Nucleated RBCs # 0.0 /100WBC 05/21/25 12:20 Sodium 139 mmol/L (136-145) 05/21/25 12:20 Potassium 4.1 mmol/L (3.5-5.1) 05/21/25 12:20 Chloride 100 mmol/L (98-107) 05/21/25 12:20 Carbon Dioxide 24 mmol/L (22-29) 05/21/25 12:20 Anion Gap 19.1 (5-19) H 05/21/25 12:20 BUN 44 mg/dL (8-23) H 05/21/25 12:20 Creatinine 2.3 mg/dL (0.7-1.2) H 05/21/25 12:20 GFR Calculation 28.9 mL/min (90-130) L 05/21/25 12:20 Glucose 110 mg/dL (65-115) 05/21/25 12:20 Calculated Osmolality 300 mOsm/kg (285-295) H 05/21/25 12:20 Calcium 9.6 mg/dL (8.5-10.5) 05/21/25 12:20 Total Bilirubin 0.4 mg/dL (0.15-1.2) 05/21/25 12:20 AST 28 U/L (0-40) 05/21/25 12:20 ALT 46 U/L (0-41) H 05/21/25 12:20 Alkaline Phosphatase 91 U/L (40-130) 05/21/25 12:20 Troponin T Baseline 16 ng/L (0-15) H 05/21/25 12:20 Troponin T 120 Minute 12.62 ng/L (0-15) 05/21/25 14:08 Delta Troponin T -3.38 ABS# (0-10) L 05/21/25 14:08 Total Protein 6.5 g/dL (6.6-8.7) L 05/21/25 12:20 Albumin 4.4 g/dL (3.5-5.2) 05/21/25 12:20 Globulin 2.1 g/dL (1.3-4.6) 05/21/25 12:20 Lipase 33 U/L (13-60) 05/21/25 12:20 Urine Color Dark yellow (Yellow) A 05/21/25 12:28 Urine Appearance Cloudy (CLEAR) A 05/21/25 12:28 Urine pH 5.0 (5-7) 05/21/25 12:28 Ur Specific [place] 1.023 (1.005-1.030) 05/21/25 12:28 Urine Protein 1+ (Negative) A 05/21/25 12:28 Urine Glucose (UA) Negative (Normal) 05/21/25 12:28 Urine Ketones Trace (Negative) 05/21/25 12:28 Urine Blood Negative (Negative) 05/21/25 12:28 Urine Nitrate Negative (Negative) 05/21/25 12:28 Urine Bilirubin Negative (Negative) 05/21/25 12:28 Urine Urobilinogen 1.0 mg/dL (Negative) 05/21/25 12:28 Ur Leukocyte Esterase Negative (Negative) 05/21/25 12:28 Urine RBC 0-2 /hpf (0-2) 05/21/25 12:28 Urine WBC 0-5 /hpf (0-5) 05/21/25 12:28 Ur Squamous Epith Cells 0-5 /hpf (0-5) 05/21/25 12:28 Amorphous Sediment Not Reportable 05/21/25 12:28 Urine Bacteria None seen /hpf (NONE) 05/21/25 12:28 Hyaline Casts 36.80 /lpf 05/21/25 12:28 Urine Sperm 1+ /hpf 05/21/25 12:28 All radiology interpretation(s) finalized by discharge EKG Data EKG 1: Interpretation: EKG 731 2025-10-03 sinus rhythm first-degree AV block rate of 75 parable 307 QTc [address] elevation. There is a right bundle branch block. Compared to EKG 04/23/2023 no significant changes. EKG 2: Interpretation: EKG 05/21/2025 1254 normal sinus rhythm first-degree AV block right bundle branch block still present. 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
[2025-05-21 12:26] LABS: Hematocrit 36.4 % (37-53); Hemoglobin 12.40 g/dL (11.27-16.99); Mean Corpuscular HGB Conc 34.1 g/dL (30-55); Mean Corpuscular Hemoglobin 30.1 pg (27-33); Mean Corpuscular Volume 88.3 fl (82-101); Nucleated Red Blood Cells % 0 %; Platelet Count 166 10^3/cmm (157-399); Red Blood Count 4.12 10^6/uL (3.85-5.65); White Blood Count 5.05 10^3/uL (3.29-11.43)
[2025-05-21 12:36] LABS: Glucose Urine UA Negative (Normal); Nitrate Urine Negative (Negative); Specific Gravity, Urine 1.023 (1.005-1.030)
[2025-05-21 12:40] LABS: Add Urine Microscopic? YES; Universal Test for UA Present (0)
[2025-05-21 12:45] LABS: Troponin(5th) Baseline 16 ng/L (0-15)
[2025-05-21 12:55] LABS: UA Slide Review UA Slide Review Perf
[2025-05-21 12:56] LABS: Alanine Aminotransferase 46 U/L (0-41); Albumin Level 4.4 g/dL (3.5-5.2); Alkaline Phosphatase 91 U/L (40-130); Anion Gap 19.1 (5-19); Aspartate Amino Transferase 28 U/L (0-40); Blood Urea Nitrogen 44 mg/dL (8-23); Calcium 9.6 mg/dL (8.5-10.5); Carbon Dioxide 24 mmol/L (22-29); Chloride 100 mmol/L (98-107); Creatinine Clr Calc Pharmacy 36.5791; Globulin 2.1 g/dL (1.3-4.6); Glucose 110 mg/dL (65-115); Lipase 33 U/L (13-60); Osmolality Calculated 300 mOsm/kg (285-295); Potassium 4.1 mmol/L (3.5-5.1); Sodium 139 mmol/L (136-145); Total Protein 6.5 g/dL (6.6-8.7)
--- NOTE | 2025-05-21 13:08 | XR_ITS ---
WS: [id number] Portable AP upright chest, 05/21/2025 Clinical Data: Syncope Comparison: Portable chest, 01/10/2024 Findings: No nodules, masses or effusions are seen. The heart is normal. The pulmonary vascularity is not increased. No pneumonia or pneumothorax is seen. There is a reverse left shoulder arthroplasty. There is erosion of the distal right clavicle along the undersurface, probable osteoarthritis. Monitor leads are on the chest wall. XR/XR chest 1V portable [id number] Impression: Negative chest.
--- NOTE | 2025-05-21 13:54 | PC.PHAR ---
[facility] [place] and spoke with Mary Alice Anguiano-who verified all medications.
--- NOTE | 2025-05-21 14:11 | ECG_ITS ---
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
[2025-05-21 14:32] LABS: Troponin 5 2HR 12.62 ng/L (0-15)
[2025-05-21 14:33] LABS: Troponin 5 2HR Delta -3.38 ABS# (0-10)
[2025-05-21 15:34] VITALS: BP 154/99; PULSE 69; O2SAT 94
[2025-05-21 17:50] VITALS: BP 149/88; PULSE 72; O2SAT 92
[2025-05-21 17:53] VITALS: BMI 33.6
--- NOTE | 2025-05-21 18:05 | PM.HP ---
Providers/Chief Complaint Admitting Physician: Sravan Hoang MD Primary Care Provider: Reny Delgado APRN Chief Complaint: syncope History of Present Illness Cecilio Vanegas is a 64 year old male comes in with his . He has had an episode of passing out for 45 to 60 seconds this morning he was slow to respond when the paramedics got there. He was able to walk but staggering got the year wrong thought it was 2022 then corrected himself. He has had episode of similar event in the past worked up when he passed out at [employer]. He states he had a carotid Doppler showing 60 to 80% narrowing on the left and a tortuous right vertebrals okay did not have intervention. He has had echo showing mild aortic root dilation. Patient describes event as he and his were having sex in the shower and he everything was fine he did not feel lightheaded. Getting out of the shower he was standing by the dresser felt lightheaded holding onto the dresser pulled it back on top of him. She states that it took all her strength to get the dresser off of him and he was out of it and she called 911. Patient at time of my arrival to the ER did not want to be admitted. He feels that he is just dehydrated and is not can I if he goes home. He reports that he was told he had sleep apnea in 2006 but then he did not put too much weight to that because that particular sleep doctor gave everybody diagnosis of sleep apnea. states he snores but not heavy and she is not sure if he quits breathing. Patient states he is recovering from rotator cuff surgery on the right shoulder. He admits to being dehydrated because it is hot he is only going out twice a day to feed and water to the animals. He does have air conditioning. States he has been drinking lots of water. Last year he was told he had reduced kidney function. Looking at his meds he is on HCTZ and also many meds and states including NSAIDs and psychiatric medications for PTSD depression anxiety. Review of Systems Narrative: General no fevers chills weight gain or weight loss. He has nightmares and night sweats about 2-3 times a week chronically Cardiovascular no chest pain palpitations or edema Respiratory negative for cough or wheezing GI no nausea vomiting diarrhea constipation no dysuria hematuria incontinence Neuro no seizures strokes limb weakness does have headaches chronically since being in [place] he is also had cataract surgery but vision has recovered denies limb weakness other than right shoulder from rotator cuff surgery that he is still recovering and doing therapy Hematologic no history of clots to legs or lungs Medications/Allergies Home Medications ?Medication ?Instructions ?Recorded ?Confirmed ?Last Taken ?Type amlodipine 10 mg tablet 10 mg PO QAM 11/20/19 05/21/25 05/21/25 History ascorbic acid (vitamin C) 500 mg 500 mg PO QAM 11/20/19 05/21/25 05/21/25 History capsule garlic 1,000 mg capsule 1,000 mg PO QAM 11/20/19 05/21/25 05/21/25 History lisinopril 40 mg tablet 40 mg PO QPM 11/20/19 05/21/25 05/20/25 History vitamin B comp and C no.3 15 mg-10 1 cap PO QDAY 11/20/19 05/21/25 05/21/25 History mg-50 mg-5 mg-300 mg capsule (B Complex Plus Vitamin C) trazodone 100 mg tablet 100 mg PO QPM 06/27/22 05/21/25 05/20/25 History calcium 600 mg (as 2 tab PO QAM 03/26/23 05/21/25 05/21/25 History carbonate)-vitamin D3 10 mcg (400 unit) tablet (Calcium 600 + D(3)) cetirizine 10 mg tablet 10 mg PO QPM PRN allergies 03/26/23 05/21/25 01/09/24 History levetiracetam 1,000 mg tablet 1,000 mg PO BID 03/26/23 05/21/25 05/21/25 History multivitamin (Daily Multi-Vitamin 1 tab PO QAM 03/26/23 05/21/25 05/21/25 History tablet) omega 1-vpn-oha-fish oil 150 1 cap PO QPM 03/26/23 05/21/25 05/20/25 History mg-217 mg-840 mg capsule,delayed release (Fish Oil) venlafaxine 150 mg 150 mg PO QAM 03/26/23 05/21/25 05/21/25 History capsule,extended release 24 hr vit C 250 mg-vit E 90 mg-zinc 40 1 tab PO BID 03/26/23 05/21/25 05/21/25 History mg-copper 1 jg-eetbgk-ovpinv capsule (PreserVision AREDS-2) rizatriptan 10 mg disintegrating 10 mg PO Q2H PRN headaches 06/14/23 05/21/25 01/04/24 History tablet atorvastatin 40 mg tablet 20 mg PO QPM 01/10/24 05/21/25 05/20/25 History doxepin 50 mg capsule 100 mg PO QPM 01/10/24 05/21/25 05/20/25 History prazosin 2 mg capsule 6 mg PO QPM 01/10/24 05/21/25 05/20/25 History meloxicam 15 mg tablet 15 mg PO DAILY 09/26/24 05/21/25 05/21/25 History erenumab-aooe 140 mg/mL See Rx Instructions .Route 05/04/25 05/21/25 Unknown Rx subcutaneous auto-injector .COMPLEX #1 mL (Aimovig Autoinjector) cyclobenzaprine 10 mg tablet 10 mg PO TID PRN Muscle Spasm 05/21/25 05/21/25 05/21/25 History docusate sodium 100 mg capsule 100 mg PO BID PRN Constipation 05/21/25 05/21/25 Unknown History (Colace) fluticasone propionate 50 1 spray intranasal DAILY 05/21/25 05/21/25 05/21/25 History mcg/actuation nasal spray,suspension hydrochlorothiazide 25 mg tablet 25 mg PO DAILY 05/21/25 05/21/25 05/21/25 History hydrocodone 10 mg-acetaminophen 1 tab PO Q8H PRN Pain 05/21/25 05/21/25 Unknown History 325 mg tablet hydroxyzine HCl 25 mg tablet 25 mg PO QID 05/21/25 05/21/25 05/21/25 History mirtazapine 30 mg tablet 15 mg PO BEDTIME 05/21/25 05/21/25 05/20/25 History sildenafil 100 mg tablet See Rx Instructions .Route 05/21/25 05/21/25 Unknown History .COMPLEX PRN Erectile Dysfunction Allergies Allergy/AdvReac Type Severity Reaction Status Date / Time No Known Allergies Allergy Verified 03/20/25 10:58 PFSH Acute PFSH: Medical History (Updated 05/21/25 @ 18:12 by Sravan Hoang MD) Chronic pain Anxiety and depression Osteoarthritis of right knee Tubular adenoma of colon PTSD (post-traumatic stress disorder) Chronic migraine without aura, intractable, with status migrainosus Surgical History History of cataract extraction with lens replacement Hx of shoulder replacement History of colonoscopy Hx of inguinal hernia repair S/P left rotator cuff repair Family History Other Diabetes Social History (Updated 05/21/25 @ 18:10 by Sravan Hoang MD) Smoking and tobacco/nicotine status: former use of tobacco/nicotine Alcohol intake: never Substance/Drug Use: never Additional social history: Patient is not drink use drugs or tobacco. 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 [place] Vitals/I&O/Wt Last Vital Signs Temp 97.9 F 05/21/25 12:13 Pulse 72 05/21/25 17:50 Resp 18 05/21/25 12:13 BP 149/88 05/21/25 17:50 Pulse Ox 92 05/21/25 17:50 O2 Del Method Room Air 05/21/25 15:34 05/21/25 05/21/25 05/21/25 06:59 14:59 22:59 Intake Total 1000 / 1000 1000 / 2000 Balance 1000 / 1000 1000 / 2000 Weight last 48 hrs Weight 97.522 kg Physical Exam Narrative: General Well-developed well-nourished overweight male in no acute cardiopulmonary stress Oropharynx Mallampati 1 Neck no carotid bruits CV regular rate and rhythm Lungs clear to auscultation bilaterally Abdomen positive bowel tones soft nontender Calves no tenderness cords pretibial edema Skin warm and dry Mentation alert and oriented x 3 Pupils equally round and reactive to light accommodation face is symmetric moves all extremities symmetrically stands normal gait Data 05/21/25 12:20 05/21/25 12:20 A&P Assessment and plan 1. Acute kidney injury: Patient will have his lisinopril and NSAID held hydrate overnight and recheck labs in the morning check levetiracetam level and decrease dose to 750 mg twice a day for now 2. Syncope: Patient had a history of carotid stenosis and needs to have repeat test performed additionally telemetry here and potentially 14-day telemetry outpatient I think he is at risk of being overmedicated with his multiple meds and now renal insufficiency 3. Chronic migraine without aura, intractable, with status migrainosus: Stable 4. Anxiety and depression: Stable but multiple medications including narcotics SSRIs and atypical psychiatric meds 5. Chronic pain: Continue home hydrocodone 10 mg PDMP PDMP Reviewed: Not Reviewed Attestations Medical Necessity Statement*: Patient mid to the hospital under observation expected to spend 1 midnight Coding Level of Care Code 57224 Diagnoses Acute kidney injury N17.9 Syncope R55 Chronic migraine without aura, intractable, with status migrainosus G43.711 Anxiety and depression F41.9; F32.A Chronic pain G89.29 Time Spent (min) 70
[2025-05-21 19:11] LABS: Troponin 5 6HR 12.66 ng/L (0-15)
[2025-05-21 19:12] LABS: Troponin 5 6HR Delta -3.34 ng/L (0-12)
[2025-05-21 19:13] VITALS: BP 175/75; PULSE 91; RESP 17; TEMP 36.7; O2SAT 95
[2025-05-21 20:00] VITALS: BP 178/73; PULSE 93; RESP 17; TEMP 36.7; O2SAT 95
--- NOTE | 2025-05-21 20:03 | ECG_ITS ---
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
[2025-05-21] MEDS: sodium chlor 0.9% + KCl 20 mEq 20 MEQ/1,000 ML BAG 100 MEQ IV (21:02)
[2025-05-21] MEDS: heparin 5,000 unit/mL INJ 1 mL 5000 UNIT SUBCUT (21:03)
[2025-05-22] VITALS: BP 190/68; PULSE 80; RESP 16; TEMP 36.6; O2SAT 95
[2025-05-22 04:00] VITALS: BP 151/71; PULSE 70; RESP 16; TEMP 36.5; O2SAT 94
--- OUTSIDE RECORDS SUMMARY | 2025-05-22 05:25 | XMS_ITS | Clinical Summary ---
Author Organization [facility] Address [address] [place] [address] Phone Care Team Providers Care Waste Examiner Name Role Phone DelgadoReny doll Bj TODD Primary Care Provider [phone] Allergies Active Allergy Reactions Criticality Noted Date Comments Clonazepam 02/02/2025 Delirium and visual disturbances. Medications amLODIPine (Norvasc) 10 mg tablet Take 10 mg by mouth 1 (one) time each day. 1 Active aspirin 81 mg EC tablet Take 81 mg by mouth 1 (one) time each day. 2 Active atorvastatin (Lipitor) 40 mg tablet Take 20 mg by mouth every night. 2 Active levETIRAcetam (Keppra) 1,000 mg tablet Take 1,000 mg by mouth 2 (two) times a day. 2 Active lisinopriL (Prinivil, Zestril) 40 mg tablet Take 40 mg by mouth every night. 2 Active venlafaxine XR (Effexor XR) 150 mg 24 hr capsule Take 150 mg by mouth 1 (one) time each day. Do not crush or chew. Active hydrOXYzine pamoate (Vistaril) 25 mg capsule Take 25 mg by mouth 3 (three) times a day. Active melatonin 10 mg capsule Take 10 mg by mouth every night. Active rizatriptan CONTENT STRATEGIST (Maxalt-CONTENT STRATEGIST) 10 mg disintegrating tablet Take 10 mg by mouth 1 (one) time if needed for migraine. May repeat in 2 hours if unresolved. Do not exceed 30 mg in 24 hours. Active onabotulinumtoxinA (Botox) 200 unit injection Inject 200 Units into the shoulder, thigh, or buttocks every 3 (three) months. Active flaxseed oiL 1,000 mg capsule Take 1,000 mg by mouth 2 (two) times a day. Active garlic 1,000 mg capsule Take 1,000 mg by mouth 1 (one) time each day. Active calcium carbonate/vitamin D3 (CALCIUM 600 + D,3, ORAL) Take 1 capsule by mouth 2 (two) times a day. Active ascorbic acid (Vitamin C) 500 mg tablet Take 500 mg by mouth 1 (one) time each day. Active multivitamin tablet Take 1 tablet by mouth 1 (one) time each day. Active vit C/E/zinc ox/paula/lut/zeax (ICAPS AREDS2 ORAL) Take 1 capsule by mouth 2 (two) times a day. Active traZODone (Desyrel) 100 mg tablet Take 100 mg by mouth every night. Active prazosin (Minipress) 5 mg capsule Take 5 mg by mouth every night. Take with 2mg to=7mg nightly Active doxepin (SINEquan) 100 mg capsule Take 100 mg by mouth every night. Active cetirizine (ZyrTEC) 10 mg tablet Take 10 mg by mouth every night. Active Aimovig Autoinjector 140 mg/mL auto-injector Inject 140 mg as directed every 30 (thirty) days. 2 Active meloxicam (Mobic) 15 mg tablet Take 15 mg by mouth 1 (one) time each day. 4 Active mirtazapine (Remeron) 30 mg tablet Take 15 mg by mouth. 4 Active sildenafiL (Viagra) 100 mg tablet Take 100 mg by mouth 1 (one) time each day if needed for erectile dysfunction. Active polycarbophil (Fiber, calcium polycarbophil,) 625 mg tablet Take 1,250 mg by mouth 1 (one) time each day. Active docusate sodium (Colace) 100 mg capsule Take 100 mg by mouth 3 (three) times a day. Active hydroCHLOROthiazide (HYDRODiuril) 25 mg tablet Take 25 mg by mouth 1 (one) time each day. Active b complex tablet Take 1 tablet by mouth 1 (one) time each day. Active ZINC ACETATE ORAL Use 1 tablet in the mouth or throat 1 (one) time each day. Active Active Problems Problem Noted Date Diagnosed Date S/P arthroscopy of right shoulder 02/17/2025 Impingement of right shoulder 02/09/2025 Complete tear of right rotator cuff 11/20/2024 Superior glenoid labrum lesion of right shoulder 11/20/2024 Arthritis of right acromioclavicular joint 11/20 Other injury of muscle, fasc ia and tendon of long head of biceps, right arm, initial encounter 11/20/2024 Encounters Date Type Department Care Team Description 05/14/2025 1:00 PM CDT [facility] [address] [phone] Jorge Crowder MD S/P arthroscopy of right shoulder (Primary Dx) 04/02/2025 10:15 AM CDT Office Visit [facility] [address] [address] Jorge Crowder MD S/P arthroscopy of right shoulder (Primary Dx) 04/02/2025 Refill [facility] [address] [address] Jagruti Sanabria LPN S/P arthroscopy of right shoulder (Primary Dx) 03/17/2025 Telephone [facility] [address] [address] Jorge Crowder MD Med Refill 03/05/2025 Orders Only [facility] [address] [address] Bertha Velazquez MA S/P arthroscopy of right shoulder (Primary Dx) 03/05/2025 Telephone [facility] [address] [address] Jorge Crowder MD MP, med refill 03/04/2025 Telephone [facility] [address] [address] Jorge Crowder MD MP [facility] RFS form 03/02/2025 Telephone [facility] [address] [address] Jorge Crowder MD MP, PT 02/24/2025 Telephone [facility] [address] [place] [phone] Jorge Crowder MD Med Refill (/) from Last 3 Months Family History Medical History Relation Comments Diabetes Brother Hypertension Mother Relation Status Comments Brother Father Mother Social History Tobacco Use Types Packs/Day Years Used Date Smoking Tobacco: Former Cigarettes 1 2 - 2006 Smokeless Tobacco: Former Chew Tobacco Cessation:Counseling Given: Not Answered Alcohol Use Standard Drinks/Week Comments Never 0 (1 standard drink = 0.6 oz pur e alcohol) PHQ-2 Answer Date Recorded Patient Health Questionnaire-2 Score 0 04/02/2025 [facility] - Mental Health Answer Date Recorde [...] on file Sexual Orientation Not on file Last Filed Vital Signs Vital Sign Reading [...] Mass Index 33.33 05/14/2025 1:22 PM CDT Plan of Treatment Upcoming Encounters Date Type Department Care Team (Late st Contact Info) Description 06/30/2025 11:15 AM CDT Office [facility] [address] [place] [phone] Jorge Crowder MD [address] [address] Health Maintenance Due Date Last Done Comments CT Colonography 1960 Colonoscopy 1960 Colorectal Cancer Screening 1960 FIT-DNA 1960 FIT 1960 FOBT 1960 Lipid Panel 1960 Sigmoidoscopy 1960 Diabetes Screening 12/26/1979 Social Drivers of Health (SDoH) 12/26/1979 MMR Vaccines (1 of 1 - Standard series) 01/17/2010 Varicella Vaccines (1 of 2 - 13+ 2-dose series) 01/17/2010 Medicare Initial AWV [id number] 09/21/2018 COVID-19 Vaccine ( - season) 2024 Influenza Vaccine (#1) 2025 , 06/22/2022, 08/04/2021, Additional history exists Creatinine Level 02/02/2026 02/02/2025, 10/2021, 12/12/2021 Potassium Level 02/02/2026 02/02/2025, 03/0 10/2021, 12/12/2021 Depression Screening 04/03/2026 04/02/2025 DTaP,Tdap,and Td Vaccines (5 - Td or Tdap) 07/10/2026 07/10/2016, 12/11/2015, 03/22/2006, Additional history exists RSV Vaccines (1 - 1-dose 75+ series) 2036 Zoster Vaccines Completed 09/30/2020, 07/08/2020 Pneumococcal Vaccine: 50+ Years Completed 04/11/2023, 04/09/2019 Pneumococcal Vaccine Aged Out 04/11/2023, 04/09/20 19 No longer eligible based on patient's age to complete this topic HIB Vaccines Aged Out No longer eligi ble based on patient's age to complete this topic HPV Vaccines Aged Out No longer eligi ble based on patient's age to complete this topic Hepatitis A Vaccines Aged Out No long er eligible based on patient's age to complete this topic Hepatitis B Vaccines Aged Out No long er eligible based on patient's age to complete this topic IPV Vaccines Aged Out No longer eligi ble based on patient's age to complete this topic Meningococcal B Vaccine Aged Out No l onger eligible based on patient's age to complete this topic Meningococcal Vaccine Aged Out No monica maryana eligible based on patient's age to complete this topic Rotavirus Vaccines Aged Out No longer eligible based on patient's age to complete this topic Medical Devices Implanted Type Area Polymerization Oven Operator Device Identifier Shelf Expiration Date Model / Serial / Lot August Gonzalez 4.75mm Bl - [id number] Implanted:Qty: 1 on 02/09/2025 by Jorge Crowder MD at [facility] Implant Right: Shoulder FAYE [id number] 10/25/2026 [id number] / / [id number] Description:PURCHASED ON PO# [id number] Niland Bone 3w Arthro Del Syst - [id number] Implanted:Qty: 1 on 02/09/2025 by Jorge Crowder MD at [facility] Implant Right: Shoulder FAYE [id number] 09/19/2027 [id number] / / [id number] Description:PURCHASED ON PO# [id number] Bioinductive Impl W/Arth Del - [id number] Implanted:Qty: 1 on 02/09/2025 by Jorge Crowder MD at [facility] Implant Right: Shoulder FAYE [id number] 09/18/2027 [id number] / / [id number] Description:PURCHASED ON PO# [id number] Tendon Niland Kit W8 Anchors - [id number] Implanted:Qty: 1 on 02/09/2025 by Jorge Crowder MD at [facility] Implant Right: Shoulder FAYE [id number] 11/07/2027 [id number] / / [id number] Description:PURCHASED ON PO# [id number] Procedures Procedure Name Priority Date/Time Associated Diagnosis Comments BASIC METABOLIC PANEL Routine 02/02/2025 12:56 PM CDT Preoperative testing Complete tear of right rotator cuff, unspecified whether traumatic Hypertension, unspecified type from Last 3 Months or Most Recently Relevant to Health Maintenance Results * (ABNORMAL) Basic Metabolic Profile (02/02/2025 12:56 PM CDT) Pathologist [facility] Glucose 122(H) 70 - 100 mg/dL LAB CHEMISTRY METHOD 02/02/2025 2:36 PM CDT [facility] BUN 27(H) 9 - 20 mg/dL LAB CHEMISTRY METHOD 02/02/2025 2:36 PM CDT [facility] Creatinine 1.71(H) 0.66 - 1.25 mg/dl LAB CHEMISTRY METHOD 02/02/2025 2:36 PM CDT [facility] BUN/Creatinine Ratio 16 12 - 17 LAB CHEMISTRY METHOD 02/02/2025 2:36 PM CDT [facility] Sodium 138 135 - 145 mmol/L LAB CHEMISTRY METHOD 02/02/2025 2:36 PM CDT [facility] Potassium 3.5(L) 3.6 - 5.0 mmol/L LAB CHEMISTRY METHOD 02/02/2025 2:36 PM CDT [facility] Chloride 103 101 - 111 mmol/L LAB CHEMISTRY METHOD 02/02/2025 2:36 PM CDT [facility] Total Carbon Dioxide 30 22 - 30 mmol/L LAB CHEMISTRY METHOD 02/02/2025 2:36 PM CDT [facility] Anion Gap 9 9 - 17 mmol/L LAB CHEMISTRY METHOD 02/02/2025 2:36 PM CDT [facility] Calcium 9.7 8.2 - 10.2 mg/dL LAB CHEMISTRY METHOD 02/02/2025 2:36 PM CDT [facility] eGFR 44(L) >=60 mL/min/1. 73 m2 LAB CHEMISTRY METHOD 02/02/2025 2:36 PM CDT [facility] Comment:Moderate Risk of Chr onic Kidney Disease Blood Venous blood specimen / Unknown Venipuncture / Unknown 02/02/2025 12:56 PM CDT 02/02/2025 12:56 PM CDT Jorge Crowder MD LAB BLOOD ORDERABLES Final R esult [facility] [address] [phone] from Last 3 Months or Most Recently Relevant to Health Maintenance Insurance MEDICARE [facility] Member Subscriber Plan / Payer (Ef fective 2005-Present) Name:Cecilio Vanegas Relation to Subscriber:Self Name:Cecilio Vanegas Payer ID:[id number] (NAIC) Group ID:[id number] Type:Not on file Address: [address] [employer] Care Teams Waste Examiner Relationship Specialty Start Date End Date Reny Delgado APRN [address] [place] [address] [place] [address] PCP - General 02/02/25
--- OUTSIDE RECORDS SUMMARY | 2025-05-22 05:25 | XMS_ITS | Clinical Summary ---
Author Organization [facility] Address [address] [place] [address] Phone Care Team Providers Care Disk And Tape Machine Tender Name Role Phone Unavailable Primary Care Provider Unavailabl e Allergies No known active allergies Medications Alprostadil 30 mcg, Papaverine 30 mg, Phentolamine 2 mg/mL compounded injection 5 mL by See Admin Instructions route see administration instructions. 1 Each 5 04/30/20 24 Active AMOXAPINE ORAL Take by mouth. From dentist Active meloxicam (MOBIC) 15 mg tablet Take 15 mg by mouth daily. 09/04/20 24 Active Active Problems No known active problems Encounters Date Type Department Care Team Description 05/06/2025 External Device Data [facility]CTION Provider, Abstract 05/05/2025 External Device Data [facility] Provider, Abstract 04/28/2025 External Device Data [facility] Provider, Abstract 04/14/2025 External Device Data [facility] Provider, Abstract 03/11/2025 External Device Data [facility]CTION Provider, Abstract 03/10/2025 External Device Data [facility]STRACTION Provider, Abstract from Last 3 Months Social History Tobacco Use Types Packs/Day Years Used Date Smoking Tobacco: Never Smokeless Tobacco: Never Tobacco Cessation:Counseling Given: Not Answered Alcohol Use Standard Drinks/Week Comments Never 0 (1 standard drink = 0.6 oz pur e alcohol) Sex and Gender Information Value Date Recorded Sex Assigned at Not on file Legal Sex Male 9:41 AM VICE PRESIDENT FIXED INCOME Gender Identity Not on file Sexual Orientation Not on file Last Filed Vital Signs Vital Sign Reading Time Taken Comments Blood Pressure 146/77 12/22/2021 4:00 PM VICE PRESIDENT FIXED INCOME Pulse 81 12/22/2021 4:00 PM VICE PRESIDENT FIXED INCOME Temperature 36.6 C (97.9 F) 12/22/2021 9:50 AM VICE PRESIDENT FIXED INCOME Respiratory Rate 16 12/22/2021 9:50 AM VICE PRESIDENT FIXED INCOME Oxygen Saturation 96% 12/22/2021 4:00 PM VICE PRESIDENT FIXED INCOME Inhaled Oxygen Concentration - - Weight - - Height - - Body Mass Index - - Plan of Treatment Health Maintenance Due Date Last Done Comments Pre-Diabetes and Diabetes Screening 1960 COLORECTAL SCREENING 2006 Colorectal Cancer Screening 2006 FIT-DNA Q 3 years 2006 FIT/FOBT Q 1 year 2006 Flex Sig/CT Colonography Q 5 years 2006 INFLUENZA VACCINE (#1) 2025 2, 08/04/2021, 07/08/2020, Additional history exists DTAP/TDAP/TD VACCINES (3 - T d or Tdap) 07/10/2026 07/10/2016, 03/22/2006, 03/22/2006 RSV VACCINE (60+ or ) (1 - 1-dose 75+ series) 2036 ZOSTER VACCINE Completed 09/30/2020, 07/08/2020 Insurance MEDICARE PART A AND B * Guarantor: [employer]ISS [employer] (C) Account Type Relation to Patient Date of Phone Billing Address Corporate Other DEFAULT ADDRESS [address] [address] [employer]
[2025-05-22 06:02] LABS: Anion Gap 13.9 (5-19); Blood Urea Nitrogen 37 mg/dL (8-23); Calcium 8.6 mg/dL (8.5-10.5); Carbon Dioxide 26 mmol/L (22-29); Chloride 105 mmol/L (98-107); Creatinine Clr Calc Pharmacy 48.5295; Glucose 99 mg/dL (65-115); Osmolality Calculated 301 mOsm/kg (285-295); Potassium 3.9 mmol/L (3.5-5.1); Sodium 141 mmol/L (136-145)
[2025-05-22] MEDS: sodium chlor 0.9% + KCl 20 mEq 20 MEQ/1,000 ML BAG 100 MEQ IV (06:11)
[2025-05-22] MEDS: venlafaxine ER (24HR) 150 mg Capsule PO (06:11)
[2025-05-22 07:48] VITALS: BP 155/84; PULSE 63; RESP 17; TEMP 36.4; O2SAT 94
--- NOTE | 2025-05-22 09:24 | USCV_ITS ---
Cecilio Vanegas Age: 64 Gender: M : 1960 Exam Date: 05/22/2025 10:02 Ordering Phys: Sravan Hoang MD Technologist: Exam Location[place] [facility] [place]: tia vs cva Risk Factors: Previous Vascular Surgery: Right Brachial BP: / Left Brachial BP: / Right Left Velocity (cm/s) Spectral Plaque Velocity (cm/s) Spectral Plaque Syst/Diast Broadening Syst/Diast Broadening 92.40/ 23.40 Prox CCA 149.20/ 13.60 72.00/ 17.90 Mid CCA 107.60/ 13.30 61.10/ 16.10 Distal CCA 39.50 / 9.10 58.80/ 17.70 Prox ICA 26.80 / 9.30 65.90/ 19.50 Mid ICA 41.50 / 16.00 60.50/ 21.30 Distal ICA 44.90 / 18.00 107.70 ECA 48.30 1.10 ICA/CCA 1.10 Antegrade Vertebral Antegrade 33.80/ 8.80 cm/s 24.80/ 8.00 cm/s Tri Subclavian Tri 73.00 81.80 CONCLUSIONS Right ICA stenosis <50%. Mild atheromatous plaque right carotid bulb/ICA. Left ICA stenosis <50%. Mild atheromatous plaque left carotid bulb/ICA. Normal antegrade Doppler flow noted in the right vertebral artery. Normal antegrade Doppler flow noted in the left vertebral artery. Sravan Arora MD (Electronically Signed) Final Date: 22 May 2025 11:01 S
--- NOTE | 2025-05-22 09:24 | PC.NURSE ---
Patient has no armband or allergy band on this am. This nurse has asked for one.
[2025-05-22] MEDS: heparin 5,000 unit/mL INJ 1 mL 5000 UNIT SUBCUT (09:30)
[2025-05-22] MEDS: multivitamin therapeutic Tablet 1 TAB PO (09:30)
[2025-05-22 11:50] VITALS: BP 145/81; PULSE 82; RESP 17; TEMP 37.1; O2SAT 95
--- NOTE | 2025-05-22 13:20 | PM.DCS ---
Discharge Providers Date of Admission: 05/21/25 14:43 Date of Discharge: May 22, 2025 Attending Provider at Admission: Sravan Hoang MD Attending Provider at Discharge: Sravan Hoang MD Primary Care Provider: Reny Delgado APRN Diagnoses at Discharge Discharge Diagnosis 1. Acute kidney injury: Details from hospital stay: Patient dehydrated and creatinine elevation attributable to HCTZ 25 mg daily, hot weather and meloxicam 15 mg daily in the setting of known baseline creatinine 1.2 but with history of intermittent acute kidney injury with creatinine 1.4 on 12/24/2023 and 2.0 on 01/10/2024 I renally adjusted Effexor down to 75 mg XR daily and levetiracetam to 500 mg twice a day due to kidney dysfunction 2. Syncope: Details from hospital stay: I think this is due to medication effect and dehydration. Carotid Dopplers were reassuring with both carotids less than 50% narrowing 3. Chronic migraine without aura, intractable, with status migrainosus: Details from hospital stay: . Vertebrals were antegrade no symptoms here 4. Anxiety and depression: Details from hospital stay: Meds adjusted 5. Chronic pain: Details from hospital stay: Meds adjusted Reason for Visit Reason for Visit: syncope Brief History: casa Vanegas is a 64 year old male comes in with his . He has had an episode of passing out for 45 to 60 seconds this morning he was slow to respond when the paramedics got there. He was able to walk but staggering got the year wrong thought it was 2022 then corrected himself. He has had episode of similar event in the past worked up when he passed out at [employer]. He states he had a carotid Doppler showing 60 to 80% narrowing on the left and a tortuous right vertebrals okay did not have intervention. He has had echo showing mild aortic root dilation. Patient describes event as he and his were having sex in the shower and he everything was fine he did not feel lightheaded. Getting out of the shower he was standing by the dresser felt lightheaded holding onto the dresser pulled it back on top of him. She states that it took all her strength to get the dresser off of him and he was out of it and she called 911. Patient at time of my arrival to the ER did not want to be admitted. He feels that he is just dehydrated and is not can I if he goes home. He reports that he was told he had sleep apnea in 2006 but then he did not put too much weight to that because that particular sleep doctor gave everybody diagnosis of sleep apnea. states he snores but not heavy and she is not sure if he quits breathing. Patient states he is recovering from rotator cuff surgery on the right shoulder. He admits to being dehydrated because it is hot he is only going out twice a day to feed and water to the animals. He does have air conditioning. States he has been drinking lots of water. Last year he was told he had reduced kidney function. Looking at his meds he is on HCTZ and also many meds and states including NSAIDs and psychiatric medications for PTSD depression anxiety. Hospital Course Hospital Course Patient had carotid Dopplers done which were negative for hemodynamically significant stenosis. He had no further episodes of syncope here rhythm monitoring was unremarkable and creatinine did improve with hydration. 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 as well as his present at bedside Physical Exam Narrative: CV regular rate and rhythm Lungs clear to auscultation bilaterally Mentation alert and oriented x 3 speech is clear Discharge Data Studies Completed and Pending Completed Studies During Hospitalization Category Date Time Status XR chest 1V portable [id number] Stat Exams 05/21/25 13:08 Completed US carotid duplex bilateral [CV carotid duplex BI* Ultrasound 05/22/25 09:24 Completed [id number]] Urgent Pending at discharge Category Date Time Status Basic Metabolic Panel AM LABS Lab 05/23/25 04:00 Ordered Basic Metabolic Panel AM LABS Lab 05/24/25 04:00 Ordered Levetiracetam Immunoassy Routine Lab 05/21/25 18:41 Received Radiology Impressions Chest X-Ray 05/21/25 13:08 Impression: Negative chest. Laboratory Results WBC 5.05 10^3/uL (3.29-11.43) 05/21/25 12:20 RBC 4.12 10^6/uL (3.85-5.65) 05/21/25 12:20 Hgb 12.40 g/dL (11.27-16.99) 05/21/25 12:20 Hct 36.4 % (37-53) L 05/21/25 12:20 MCV 88.3 fl (82-101) 05/21/25 12:20 MCH 30.1 pg (27-33) 05/21/25 12:20 MCHC 34.1 g/dL (30-55) 05/21/25 12:20 RDW 11.7 % (12.1-15.1) L 05/21/25 12:20 Plt Count 166 10^3/cmm (157-399) 05/21/25 12:20 MPV 9.0 fL (7.4-10.4) 05/21/25 12:20 Neut % (Auto) 62.8 % 05/21/25 12:20 Lymph % (Auto) 27.9 % 05/21/25 12:20 [place] % (Auto) 7.3 % 05/21/25 12:20 Eos % (Auto) 1.2 % 05/21/25 12:20 Baso % (Auto) 0.6 % 05/21/25 12:20 Neut # (Auto) 3.17 10^3/uL (1.8-7.7) 05/21/25 12:20 Lymph # (Auto) 1.4 10^3/uL (0.8-4.8) 05/21/25 12:20 [place] # (Auto) 0.4 10^3/uL (0.2-0.9) 05/21/25 12:20 Eos # (Auto) 0.1 10^3/uL (0.0-0.8) 05/21/25 12:20 Baso # (Auto) 0.0 10^3/uL (0.0-0.1) 05/21/25 12:20 Nucleated RBC % (auto) 0 % 05/21/25 12:20 Nucleated RBCs # 0.0 /100WBC 05/21/25 12:20 Sodium 141 mmol/L (136-145) 05/22/25 05:10 Potassium 3.9 mmol/L (3.5-5.1) 05/22/25 05:10 Chloride 105 mmol/L (98-107) 05/22/25 05:10 Carbon Dioxide 26 mmol/L (22-29) 05/22/25 05:10 Anion Gap 13.9 (5-19) 05/22/25 05:10 BUN 37 mg/dL (8-23) H 05/22/25 05:10 Creatinine 1.8 mg/dL (0.7-1.2) H 05/22/25 05:10 GFR Calculation 38.3 mL/min (90-130) L 05/22/25 05:10 Glucose 99 mg/dL (65-115) 05/22/25 05:10 Calculated Osmolality 301 mOsm/kg (285-295) H 05/22/25 05:10 Calcium 8.6 mg/dL (8.5-10.5) 05/22/25 05:10 Total Bilirubin 0.4 mg/dL (0.15-1.2) 05/21/25 12:20 AST 28 U/L (0-40) 05/21/25 12:20 ALT 46 U/L (0-41) H 05/21/25 12:20 Alkaline Phosphatase 91 U/L (40-130) 05/21/25 12:20 Troponin T Baseline 16 ng/L (0-15) H 05/21/25 12:20 Troponin T 120 Minute 12.62 ng/L (0-15) 05/21/25 14:08 Delta Troponin T -3.38 ABS# (0-10) L 05/21/25 14:08 Troponin T Hi Sens 6Hr 12.66 ng/L (0-15) 05/21/25 18:41 Troponin T Hi Sens 6Hr Delta -3.34 ng/L (0-12) L 05/21/25 18:41 Total Protein 6.5 g/dL (6.6-8.7) L 05/21/25 12:20 Albumin 4.4 g/dL (3.5-5.2) 05/21/25 12:20 Globulin 2.1 g/dL (1.3-4.6) 05/21/25 12:20 Lipase 33 U/L (13-60) 05/21/25 12:20 Urine Color Dark yellow (Yellow) A 05/21/25 12:28 Urine Appearance Cloudy (CLEAR) A 05/21/25 12:28 Urine pH 5.0 (5-7) 05/21/25 12:28 Ur Specific [place] 1.023 (1.005-1.030) 05/21/25 12:28 Urine Protein 1+ (Negative) A 05/21/25 12:28 Urine Glucose (UA) Negative (Normal) 05/21/25 12:28 Urine Ketones Trace (Negative) 05/21/25 12:28 Urine Blood Negative (Negative) 05/21/25 12:28 Urine Nitrate Negative (Negative) 05/21/25 12:28 Urine Bilirubin Negative (Negative) 05/21/25 12:28 Urine Urobilinogen 1.0 mg/dL (Negative) 05/21/25 12:28 Ur Leukocyte Esterase Negative (Negative) 05/21/25 12:28 Urine RBC 0-2 /hpf (0-2) 05/21/25 12:28 Urine WBC 0-5 /hpf (0-5) 05/21/25 12:28 Ur Squamous Epith Cells 0-5 /hpf (0-5) 05/21/25 12:28 Amorphous Sediment Not Reportable 05/21/25 12:28 Urine Bacteria None seen /hpf (NONE) 05/21/25 12:28 Hyaline Casts 36.80 /lpf 05/21/25 12:28 Urine Sperm 1+ /hpf 05/21/25 12:28 Vitals Last Vital Signs Temp 98.8 F 05/22/25 11:50 Pulse 82 05/22/25 11:50 Resp 17 05/22/25 11:50 BP 145/81 05/22/25 11:50 Pulse Ox 95 05/22/25 11:50 O2 Del Method Room Air 05/22/25 11:50 Discharge Plan Discharge Patient Disposition: Home Condition: Stable Prescriptions: New venlafaxine 75 mg capsule,extended release 24hr 75 mg PO DAILY Qty: 30 0RF Continued amlodipine 10 mg tablet 10 mg PO QAM ascorbic acid (vitamin C) 500 mg capsule 500 mg PO QAM garlic 1,000 mg capsule 1,000 mg PO QAM B Complex Plus Vitamin C 10-42-50-5-300 mg capsule 1 cap PO QDAY trazodone 100 mg tablet 100 mg PO QPM rizatriptan 10 mg tablet,disintegrating 10 mg PO Q2H PRN (Reason: headaches) Rx Instructions: do not exceed 3 doses per 24 hrs Aimovig Autoinjector 140 mg/mL auto-injector See Rx Instructions .ROUTE .COMPLEX Qty: 1 2RF Dose Instruction: INJECT 140MG (CONTENTS OF 1 AUTOINJECTOR) UNDER THE SKIN EVERY MONTH TO PREVENT HEADACHES Rx Instructions: INJECT 140MG (CONTENTS OF 1 AUTOINJECTOR) UNDER THE SKIN EVERY MONTH TO PREVENT HEADACHES multivitamin [Daily Multi-Vitamin] Tablet 1 tab PO QAM cetirizine 10 mg Tablet 10 mg PO QPM PRN (Reason: allergies) calcium carbonate-vitamin D3 [Calcium 600 + D(3)] 600 mg-10 mcg (400 unit) Tablet 2 tab PO QAM Fish Oil 150-217-840 mg Capsule,Delayed Release(Dr/Ec) 1 cap PO QPM PreserVision AREDS-2 250-90-40-1 mg Capsule 1 tab PO BID cyclobenzaprine 10 mg tablet 10 mg PO TID PRN (Reason: Muscle Spasm) hydrocodone-acetaminophen 10-325 mg tablet 1 tab PO Q8H PRN (Reason: Pain) sildenafil 100 mg Tablet See Rx Instructions .ROUTE .COMPLEX PRN (Reason: Erectile Dysfunction) Rx Instructions: Take 1 tablet by mouth 1 hour prior to sexual activity. mirtazapine 30 mg Tablet 15 mg PO BEDTIME docusate sodium [Colace] 100 mg Capsule 100 mg PO BID PRN (Reason: Constipation) hydroxyzine HCl 25 mg Tablet 25 mg PO QID fluticasone propionate [Flonase] 50 mcg/actuation [place],Suspension 1 spray INTRANASAL DAILY Rx Instructions: administer into each nostril atorvastatin 40 mg Tablet 20 mg PO QPM doxepin 50 mg Capsule 100 mg PO QPM prazosin 2 mg Capsule 6 mg PO QPM Changed lisinopril 40 mg tablet 20 mg PO QPM Qty: 30 0RF levetiracetam 1,000 mg Tablet 500 mg PO BID Qty: 30 0RF Discontinued meloxicam 15 mg tablet 15 mg PO DAILY venlafaxine 150 mg Capsule,Extended Release 24hr 150 mg PO QAM hydrochlorothiazide 25 mg Tablet 25 mg PO DAILY Referrals: Reny Delgado, [facility] [Primary Care Provider, Family Practice] - 1 week Problems: Syncope; Acute kidney injury Discharge Diet: Cardiac and Low Salt Discharge Activity: Increase activity as tolerated Patient Instructions: Opioid Safety, Pain Management, Patient Portal & [place] Instructions Activity Restrictions/Additional Instructions: Your carotid Dopplers were negative for high-grade stenosis and should not be responsible for your passing out Your kidney function is decreased in part because of dehydration but this is attributable to you being on HCTZ the diuretic which I have stopped. Also you should not take meloxicam which is an anti-inflammatory and can cause kidney failure. You should not take ibuprofen Aleve or other anti-inflammatories until your kidney function has recovered as confirmed by your primary care physician. In the meantime due to kidney insufficiency levetiracetam should be decreased to 500 mg twice a day and Effexor to 75 mg XR daily. Lisinopril decreased to 20 mg daily Discharge Attestations Time Spent in Discharge Care*: greater than 30 min Time Spent in Smoking Cessation: Patient is not a smoker Quality Metrics Clinical Quality Measures [ No reported AMI, CVA or VTE this stay] Coding Level of Care Code 99753 Diagnoses Acute kidney injury N17.9 Syncope R55 Chronic migraine without aura, intractable, with status migrainosus G43.711 Anxiety and depression F41.9; F32.A Chronic pain G89.29 Time Spent (min) 40
[2025-05-22 14:50] VITALS: BP 145/81; PULSE 82; RESP 17; TEMP 37.1; O2SAT 95
--- NOTE | 2025-05-22 16:51 | PC.NURSE ---
Discussed discharge with spouse and patient. Discussed new medications, continued medications, changed medications and discontinued medications. [facility] Follow up visit was discussed as well, to call office if they have not notified you within the next two business days. Patient Verbalized understanding.
[2025-05-23 06:40] LABS: Levetiracetam Immunoassy 41.7 mcg/mL (6.0-46.0)
== END 2025-05-22 14:53 | disposition home or self-care (01) ==
LOC: ER 15:13 → MEDSURG 17:08
PROVIDERS: Admitting Provider Internal Medicine; Emergency Provider Family Medicine; PCP Nurse Practitioner Family; Visit Provider Internal Medicine
DX: R55 Syncope and collapse (principal); N17.9 Acute kidney failure, unspecified; G43.711 Chronic migraine without aura, intractable, with status migrainosus; F41.9 Anxiety disorder, unspecified; F32.A Depression, unspecified; F43.10 Post-traumatic stress disorder, unspecified; Z87.891 Personal history of nicotine dependence
CPT/HCPCS: 36415; 71045; 80048; 80053; 80177; 81001; 83690; 84484; 85025; 93005; 93880; 96360; 96361; 96372; 99285; G0378; J1644; J3480; J7030; J9999

== ENCOUNTER → 2025-06-25 09:15 | Outpatient (BNVA) | payer OTHER, SELFPAY | PROVIDERS: PCP Nurse Practitioner Family; Visit Provider Specialist | DX: G43.711 Chronic migraine without aura, intractable, with status migrainosus (principal) | CPT/HCPCS: 64615; J0585; J9999 ==

== ENCOUNTER → 2025-09-24 11:00 | Outpatient (BNVA) | payer OTHER, SELFPAY | PROVIDERS: PCP Nurse Practitioner Family; Visit Provider Specialist | DX: G43.711 Chronic migraine without aura, intractable, with status migrainosus (principal) | CPT/HCPCS: 64615; J0585; J9999 ==

== ENCOUNTER → 2025-10-06 13:28 | Outpatient (BNVA) | payer OTHER, SELFPAY | PROVIDERS: PCP Nurse Practitioner Family; Visit Provider Internal Medicine | DX: I71.20 Thoracic aortic aneurysm, without rupture, unspecified (principal) | CPT/HCPCS: 99213 ==

== ENCOUNTER 2025-10-19 13:26 | Outpatient (CLI) | payer OTHER, SELFPAY ==
--- NOTE | 2025-10-19 14:15 | CTR_ITS ---
PROCEDURE INFORMATION: Exam: CT Chest Without Contrast; Diagnostic Exam date and time: 10/19/2025 1:45 PM Age: 64 years old Clinical indication: Condition or disease; Other: Thoracic aneurysm, prior surgery; Surgery date: 6+ months; Surgery type: Left shoulder; Additional info: Thoracic aneurysm, to be done without contrast per Dr. Alcazar TECHNIQUE: Imaging protocol: Diagnostic computed tomography of the chest without contrast. Radiation optimization: All CT scans at this facility use at least one of these dose optimization techniques: automated exposure control; mA and/or kV adjustment per patient size (includes targeted exams where dose is matched to clinical indication); or iterative reconstruction. COMPARISON: CR XR chest 1V portable [id number] 05/21/2025 1:10 PM RADIATION DOSE METRICS: Total DLP (mGy-cm): 541.8 FINDINGS: Lungs: Unremarkable. No consolidation. No masses. Pleural spaces: Unremarkable. No pneumothorax. No pleural effusion. Heart: Cardiac chamber size at the upper limit of normal. Coronary arteries: Mild coronary artery calcification. Mediastinal space: No mediastinal mass or fluid collection. Lymph nodes: Unremarkable. No enlarged lymph nodes. Vasculature: Ascending aorta diameter is within normal limits at 3.5 cm. Aortic root is dilated with axial diameter estimation of 4.5 cm. Descending thoracic aorta caliber is within normal limits. Pulmonary artery caliber is normal. Spleen: Splenomegaly. Kidneys: Calcified cystic structure partially imaged in the left kidney, which appears to demonstrate scarring. Small right renal cyst. Bones/joints: Left shoulder replacement. Soft tissues: Unremarkable. CT/CT chest wo con [id number] IMPRESSION: 1. Aortic root is dilated with axial diameter estimation of 4.5 cm. Correlation for aortic root/annulus abnormality with contrast-enhanced CT or echocardiography is recommended. 2. Ascending aorta diameter is within normal limits at 3.5 cm. 3. Splenomegaly. COMMENTS: Consistent with the [employer]'s Incidental Findings Committee white paper (J Am Quynh Radiol 2018): Any incidental renal lesion less than 1 cm or classified as too small to characterize, or any incidental cystic renal lesion characterized as simple-appearing, is likely benign. No follow-up imaging is recommended for these lesions per consensus recommendations based on imaging criteria.
== END 2025-10-19 13:27 | disposition home or self-care (01) ==
LOC: RAD 13:26
PROVIDERS: PCP Nurse Practitioner Family; Visit Provider Internal Medicine
DX: I25.10 Atherosclerotic heart disease of native coronary artery without angina pectoris (principal); R16.1 Splenomegaly, not elsewhere classified; N28.1 Cyst of kidney, acquired; Z96.698 Presence of other orthopedic joint implants; I77.819 Aortic ectasia, unspecified site; N28.89 Other specified disorders of kidney and ureter
CPT/HCPCS: 71250